=== PATIENT | female | born 1965 | race African-American/Black ===

== ENCOUNTER 2016-05-30 19:19 | Emergency (ER) | payer SELFPAY ==
--- NOTE | 2016-05-30 21:03 | ER Document Report ---
ED Medical Screen (RME) - General Stated Complaint: FLANK PAIN Notes: Patient complains of left sided back pain that started today after lifting a child at work. She works in daycare. Denies dysuria, no fever, no nausea or vomiting. Has had back injury past but felt the same way. I have greeted and performed a rapid initial assessment of this patient. A comprehensive ED assessment and evaluation of the patient, analysis of test results and completion of the medical decision making process will be conducted by additional ED providers. TRAVEL OUTSIDE OF THE [place] IN LAST 30 DAYS: No - Related Data Allergies/Adverse Reactions: acetaminophen [From Vicodin] Allergy (Verified 05/30/16 20:59) hydrocodone bitartrate [From Vicodin] Allergy (Verified 05/30/16 20:59) Past Medical History - Past Medical History Cardiac Medical History: Reports: Hx Hypertension Denies: Hx Coronary Artery Disease Past Surgical History: Reports: Hx Section - Immunizations Hx Diphtheria, Pertussis, Tetanus Vaccination: No Physical Exam - Vital signs Vitals: Temp Pulse Resp BP Pulse Ox 98.9 F 87 17 200/86 H 99 05/30/16 20:09 05/30/16 20:09 05/30/16 20:09 05/30/16 20:09 05/30/16 20:09 - Back Back: Tender - left lumbar muscles, pain reproduced by left leg raise. Course - Vital Signs Vital signs: Temp Pulse Resp BP Pulse Ox 98.9 F 87 17 200/86 H 99 05/30/16 20:09 05/30/16 20:09 05/30/16 20:09 05/30/16 20:09 05/30/16 20:09
[2016-05-30 21:52] LABS: APPEARANCE,URINE SLIGHTLY-CLOUDY; BILIRUBIN,URINE NEGATIVE (NEGATIVE); GLUCOSE, URINE NEGATIVE (NEGATIVE); KETONES,URINE NEGATIVE (NEGATIVE); LEUKOCYTE ESTERASE,URINE NEGATIVE (NEGATIVE); NITRITE,URINE NEGATIVE (NEGATIVE); PROTEIN,URINE NEGATIVE (NEGATIVE); URINE SPECIFIC GRAVITY 1.017; UROBILINOGEN,URINE NEGATIVE mg/dL (<2.0)
[2016-05-30] MEDS ORDERED: OXYCODONE-ACETAMINOPHEN 5-325 MG TABLET PO ONE (22:09)
[2016-05-30] MEDS ORDERED: CYCLOBENZAPRINE HCL 10 MG TABLET PO ONE (22:09)
--- NOTE | 2016-05-30 22:10 | ER Document Report ---
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 Patient states occasionally the pain will radiate to the lateral aspect of her left lower extremity. Patient denies any numbness or tingling. Patient denies any urinary symptoms, nausea, or vomiting. Patient states she doesn't history of hypertension but she usually takes her blood pressure medications at night as her medications make her drowsy. Patient denies any headache, chest pain, shortness of breath. Associated Symptoms: Other - Left back pain Exacerbated by: Movement Relieved by: Remaining still Similar symptoms previously: Yes Recently seen / treated by doctor: No - ROS ROS below otherwise negative: Yes Systems Reviewed and Negative: Yes All other systems reviewed and negative - CONSTITUTIONAL Constitutional: DENIES: Fever, Chills - NEURO Neurology: DENIES: Headache, Weakness - CARDIOVASCULAR Cardiovascular: DENIES: Chest pain - RESPIRATORY Respiratory: DENIES: Trouble Breathing, Coughing - GASTROINTESTINAL Gastrointestinal: DENIES: Abdominal Pain - URINARY Urinary: DENIES: Dysuria - REPRODUCTIVE Reproductive: DENIES: : - MUSCULOSKELETAL Musculoskeletal: REPORTS: Back Pain. DENIES: Neck Pain - DERM Skin Color: Normal, [place] Skin Problems: None Past Medical History - General Information source: Patient - Social History Smoking Status: Never Smoker Chew tobacco use (# tins/day): No Frequency of alcohol use: None Drug Abuse: None Occupation: daycare worker Lives with: Family Family History: Reviewed & Not Pertinent, Malignancy - Past Medical History Cardiac Medical History: Reports: Hx Hypertension Denies: Hx Coronary Artery Disease Renal/ Medical History: Denies: Hx Peritoneal Dialysis Past Surgical History: Reports: Hx Section - Immunizations Hx Diphtheria, Pertussis, Tetanus Vaccination: No Vertical Provider Document - CONSTITUTIONAL Agree With Documented VS: Yes Exam Limitations: No Limitations General Appearance: WD/WN, No Apparent Distress Notes: PHYSICAL EXAMINATION: GENERAL: Well-appearing, well-nourished and in no acute distress. HEAD: Atraumatic, normocephalic. EYES: sclera clear, anicteric, conjunctiva are normal. ENT: nares patent, Moist mucous membranes. NECK: Normal range of motion, supple no lymphadenopathy LUNGS: respirations unlabored HEART: Regular rate and rhythm without murmurs, equal 2+ pulses to bilateral extremities EXTREMITIES: Normal range of motion, no pitting or edema. No cyanosis. Gait normal, pt ambulates without difficulty BACK: Left thoracolumbar paraspinal tenderness, patient with palpable muscle spasm to latissimus dorsi, no deformities or step-offs. No CVA tenderness. NEUROLOGICAL: Cranial nerves grossly intact. Normal speech, normal gait. PSYCH: Normal mood, normal affect. SKIN: Warm, Dry, normal turgor, no rashes or lesions noted. - INFECTION CONTROL TRAVEL OUTSIDE OF THE [place] IN LAST 30 DAYS: No - RESPIRATORY O2 Sat by Pulse Oximetry: 99 Course - Re-evaluation Re-evalutation: 05/30/16 22:07 Discussed with patient importance of compliance with her antihypertensive medication. Patient states she doesn't take her blood pressure medicine in the afternoon as it makes her drowsy. Patient states she takes it before she goes to bed at night. Reviewed patient's medications with her and discussed how it was only one of her medications (clonidine) that were likely making her drowsy and that she should discuss this with her primary doctor but should take her usual medications as prescribed. - Vital Signs Vital signs: Temp Pulse Resp BP Pulse Ox 98.9 F 87 17 200/86 H 99 05/30/16 20:09 05/30/16 20:09 05/30/16 20:09 05/30/16 20:09 05/30/16 20:09 Discharge - Discharge Clinical Impression: HTN (hypertension) Qualifiers: Hypertension type: essential hypertension Qualified Code(s): I10 - Essential ( primary) hypertension Low back strain Qualifiers: Encounter type: initial encounter Qualified Code(s): S39.012A - Strain of muscle, fascia and tendon of lower back, initial encounter Condition: Stable Disposition: HOME, SELF-CARE Instructions: Low Back Pain ([facility]), Muscle Strain ([facility]), Oral Narcotic Medication ([facility]), Warm Packs ([facility]), High Blood Pressure, Requiring Treatment ( [facility]) Additional Instructions: Return immediately for any new or worsening symptoms Followup with your primary care provider, call tomorrow to make a followup appointment Take your blood pressure medication as prescribed when you get home Prescriptions: Cyclobenzaprine HCl [Flexeril 10 Mg Tablet] 10 mg PO TID #15 tablet Oxycodone HCl/Acetaminophen [Percocet 5-325 mg Tablet] 1 tab PO ASDIR PRN #15 tablet PRN Reason: Forms: Return to Work Referrals: [facility] [Provider Group] - 06/02/16
[2016-05-30 23:53] VITALS: BP 186/91
== END 2016-05-30 22:25 | disposition home or self-care (01) ==
LOC: ER 19:19
DX: S39.012A Strain of muscle, fascia and tendon of lower back, initial encounter (principal); X58.XXXA Exposure to other specified factors, initial encounter; M62.830 Muscle spasm of back; I10 Essential (primary) hypertension
CPT/HCPCS: 81001; 99283

== ENCOUNTER 2016-09-02 19:23 | Emergency (ER) | payer SELFPAY ==
[2016-09-03] MEDS ORDERED: IBUPROFEN 600 MG TABLET PO ONE (00:16)
[2016-09-03] MEDS ORDERED: CLONIDINE HCL 0.2 MG TABLET PO ONE (00:17)
[2016-09-03] MEDS ORDERED: HYDROCHLOROTHIAZIDE 25 MG TABLET PO ONE (00:17)
--- NOTE | 2016-09-03 00:21 | ER Document Report ---
ED General - General Chief Complaint: High Blood Pressure Stated Complaint: LEFT LEG PAIN, KNEE PAIN, RASH Time Seen by Provider: 09/02/16 23:19 Notes: Patient is a 51-year-old female with past medical history of hypertension, noncompliant with medications who presents today with multiple complaints. She states her main concern is that she has had intermittent left thigh cramping and pain. Describes it as a mild, cramping, aching pain. No injury to the area. This is been ongoing for the past 2 weeks. He does note that she has a history of an unprovoked DVT in the past. States this pain however does not feel like when she had that in the past. She also complains of a diffuse, intermittent rash that is pruritic. Multiple contacts with similar rashes and she believes they are related to possible insect bites. She has not seen a primary care doctor regarding the above complaints. TRAVEL OUTSIDE OF THE [place] IN LAST 30 DAYS: No - Related Data Allergies/Adverse Reactions: acetaminophen [From Vicodin] Allergy (Verified 05/30/16 20:59) hydrocodone bitartrate [From Vicodin] Allergy (Verified 05/30/16 20:59) Past Medical History - General Information source: Patient - Social History Smoking Status: Never Smoker Frequency of alcohol use: None Drug Abuse: None Lives with: Family Family History: Reviewed & Not Pertinent, Malignancy - Past Medical History Cardiac Medical History: Reports: Hx Hypertension Denies: Hx Coronary Artery Disease Renal/ Medical History: Denies: Hx Peritoneal Dialysis Past Surgical History: Reports: Hx Section - Immunizations Hx Diphtheria, Pertussis, Tetanus Vaccination: No Review of Systems - Review of Systems Notes: Constitutional: Negative for fever. HENT: Negative for sore throat. Eyes: Negative for visual changes. Cardiovascular: Negative for chest pain. Respiratory: Negative for shortness of breath. Gastrointestinal: Negative for abdominal pain, vomiting or diarrhea. Genitourinary: Negative for dysuria. Musculoskeletal: Positive for left leg pain Skin: Positive for rash. Neurological: Negative for headaches, weakness or numbness. 10 point ROS negative except as marked above and in HPI. Physical Exam - Vital signs Vitals: Temp Pulse Resp BP Pulse Ox 98.2 F 91 18 220/120 H 100 09/02/16 20:22 09/02/16 20:22 09/02/16 20:22 09/02/16 20:22 09/02/16 20:22 Interpretation: Hypertensive Notes: PHYSICAL EXAMINATION: GENERAL: Well-appearing, well-nourished and in no acute distress. HEAD: Atraumatic, normocephalic. EYES: Pupils equal round and reactive to light, extraocular movements intact, sclera anicteric, conjunctiva are normal. ENT: nares patent, oropharynx clear without exudates. Moist mucous membranes. NECK: Normal range of motion, supple without lymphadenopathy LUNGS: Breath sounds clear to auscultation bilaterally and equal. No wheezes rales or rhonchi. HEART: Regular rate and rhythm without murmurs ABDOMEN: Soft, nontender, normoactive bowel sounds. No guarding, no rebound. No masses appreciated. EXTREMITIES: Normal range of motion, no pitting or edema. No cyanosis. NEUROLOGICAL: No focal neurological deficits. Moves all extremities spontaneously and on command. PSYCH: Normal mood, normal affect. SKIN: Warm, Dry, normal turgor, excoriated papular lesions over the bilateral upper extremities and bilateral lower extremities Course - Re-evaluation Re-evalutation: 09/03/16 00:17 Patient presents with 3 distinct complaints 1. Patient has uncontrolled essential hypertension is out of her blood pressure medications. Patient denies any symptoms concerning for SAH, dissection, NC, or encephalopaty. Alert, oriented, and denies any symptoms at time of assessment. Normal neuro exam. Per [facility] policy guidelines, will therefore not obtain any labs or EKG at this time. Will refill patient's home clonidine and hydrochlorothiazide. I have discussed critical importance of follow up with PCP within 1 week and increased risk of devastating stroke, heart attack, respiratory distress, and other life threatening complications if blood pressure is not reduced appropriately. Diet and exercise habits also discussed. Patient will be discharged with return precautions and follow-up recommendations. 2. Rash: Patient has multiple areas of excoriation appear to be related to bug bites. No evidence of scabies, hives, or infection. She will be started on topical triamcinolone cream. 3. Left thigh discomfort: Patient does have a history of a DVT in the past although has no peripheral edema, appreciable swelling and notes that the pain is only present when she is moving the leg. I have encouraged her return in the morning for an ultrasound although she states she would rather try ibuprofen over the course of the next 1 week and see if this resolves her symptoms. At this time will discharge with return precautions and follow-up recommendations. Verbal discharge instructions given a the bedside and opportunity for questions given. Medication warnings reviewed. Patient is in agreement with this plan and has verbalized understanding of return precautions and the need for primary care follow-up in the next 24-72 hours. - Vital Signs Vital signs: Temp Pulse Resp BP Pulse Ox 97.9 F 91 21 H 187/94 H 100 09/03/16 00:02 09/02/16 20:22 09/03/16 00:02 09/03/16 00:02 09/03/16 00:02 Discharge - Discharge Clinical Impression: Essential hypertension, Left leg pain, Pruritic rash Condition: Good Disposition: HOME, SELF-CARE Additional Instructions: You were seen today for blood pressure that was high. This is a long-term risk factor for multiple medical problems including heart attack and stroke. However, the blood pressure in of itself will not cause you to have an acute stroke or heart attack over the course of just several days or weeks. You need to have a gradual reduction of your blood pressure back to normal levels over the next several months in conjunction with your primary care physician. Return if you develop headache, weakness, numbness, chest pain, pass out, or have any other symptoms that are concerning to you. Apply the steroid cream that she was sent home with up to 3 times daily to the affected area to help with itching. Take ibuprofen 600 mg every 6 hours as needed for pain of your left thigh. After discussed I recommended to get an ultrasound of this like to be certain that it is not a clot causing the pain. Prescriptions: Clonidine HCl 0.2 mg PO BID #60 tablet Hydrochlorothiazide 25 mg PO DAILY #30 tablet Triamcinolone Acetonide 80 gm TP TID #80 cream.gm. Forms: Elevated Blood Pressure
[2016-09-03] MEDS ORDERED: TRIAMCINOLONE ACETONIDE 0.025% CREAM 15 GM TP SCH (00:30)
[2016-09-03] MEDS ORDERED: TRIAMCINOLONE ACETONIDE 0.025% CREAM 15 GM TP ONE (00:30)
[2016-09-03 00:39] VITALS: BP 187/94
[2016-09-03] MEDS ORDERED: HYDROXYZINE PAMOATE 25 MG CAPSULE PO ONE (00:54)
== END 2016-09-03 00:30 | disposition home or self-care (01) ==
LOC: ER 19:23
DX: I10 Essential (primary) hypertension (principal); T50.2X6A Underdosing of carbonic-anhydrase inhibitors, benzothiadiazides and other diuretics, initial encounter; T46.5X6A Underdosing of other antihypertensive drugs, initial encounter; Z91.14 Patient's other noncompliance with medication regimen; R25.2 Cramp and spasm; M79.652 Pain in left thigh; Z86.718 Personal history of other venous thrombosis and embolism; R21 Rash and other nonspecific skin eruption; L29.8 Other pruritus; Z88.5 Allergy status to narcotic agent; Z88.6 Allergy status to analgesic agent
CPT/HCPCS: 99283; J3490

== ENCOUNTER 2016-09-04 09:05 | Emergency (ER) | payer SELFPAY ==
[2016-09-04] MEDS ORDERED: CLONIDINE HCL 0.2 MG TABLET PO ONE (09:25)
[2016-09-04] MEDS ORDERED: HYDROCHLOROTHIAZIDE 25 MG TABLET PO ONE (09:25)
[2016-09-04] MEDS ORDERED: OXYCODONE-ACETAMINOPHEN 5-325 MG TABLET PO ONE (09:25)
--- NOTE | 2016-09-04 09:28 | ER Document Report ---
ED Extremity Problem, Lower - General Chief Complaint: Leg Pain Stated Complaint: LEFT LEG PAIN Time Seen by Provider: 09/04/16 09:16 Mode of Arrival: Ambulatory Information source: Patient Notes: Patient presents complaining of left lateral leg pain from mid thigh to the upper calf area. Patient states pain worsens when she lays supine or stands. Patient denies any injury. Patient denies any paresthesia or weakness. Patient states she does have a previous history of superficial DVT in her right leg. Patient denies any recent travel, bedrest or immobilization. Patient states she has had these symptoms for the past 16 days. TRAVEL OUTSIDE OF THE [place] IN LAST 30 DAYS: No - HPI Patient complains to provider of: Pain. No: Swelling Occurred: Other - 16 days Onset/Duration: Persistent Quality of pain: Sharp Pain Level: 5 Context: denies: Recent immobilization, Recent surgery, Recent travel Recent injury: No Associated symptoms: Painful ambulation Exacerbated by: Movement - Related Data Allergies/Adverse Reactions: acetaminophen [From Vicodin] Allergy (Verified 09/04/16 09:10) hydrocodone bitartrate [From Vicodin] Allergy (Verified 09/04/16 09:10) Past Medical History - General Information source: Patient - Social History Smoking Status: Never Smoker Frequency of alcohol use: None Drug Abuse: None Occupation: day care Family History: Reviewed & Not Pertinent, Malignancy Patient has suicidal ideation: No Patient has homicidal ideation: No - Past Medical History Cardiac Medical History: Reports: Hx Hypertension Denies: Hx Coronary Artery Disease Renal/ Medical History: Denies: Hx Peritoneal Dialysis Past Surgical History: Reports: Hx Section - Immunizations Hx Diphtheria, Pertussis, Tetanus Vaccination: No Review of Systems - Review of Systems Constitutional: No symptoms reported. denies: Fever, Weakness EENT: No symptoms reported Cardiovascular: No symptoms reported Respiratory: No symptoms reported Gastrointestinal: No symptoms reported. denies: Vomiting Genitourinary: No symptoms reported. denies: Dysuria Female Genitourinary: No symptoms reported Musculoskeletal: Muscle pain - LLE. denies: Back pain Skin: No symptoms reported. denies: Rash Hematologic/Lymphatic: No symptoms reported Neurological/Psychological: No symptoms reported Physical Exam - Vital signs Vitals: Temp Pulse Resp BP Pulse Ox 98.5 F 72 20 180/81 H 99 09/04/16 09:09 09/04/16 09:09 09/04/16 09:09 09/04/16 09:09 09/04/16 09:09 - General General appearance: Appears well, Alert In distress: None - HEENT Head: Normocephalic, Atraumatic Conjunctiva: Normal Mouth/Lips: Normal Mucous membranes: Normal Pharynx: Normal Neck: Normal - Respiratory Respiratory status: No respiratory distress Chest status: Nontender Breath sounds: Normal. No: Rales, Rhonchi, Stridor, Wheezing Chest palpation: Normal - Cardiovascular Rhythm: Regular Heart sounds: S1 appreciated, S2 appreciated Murmur: No Pulses: Normal: Posterior tibial, Dorsalis pedis - Back Back: Normal, Nontender. No: CVA tenderness, Vertebra tenderness - Extremities General upper extremity: Normal inspection, Normal ROM General lower extremity: Normal inspection, Tender - Lateral thigh tenderness from middle to distal third of the left thigh being down the proximal third of left lateral upper calf normal skin color and temperature, no edema. This increases with weightbearing or lying supine, Normal color, Normal ROM, Normal temperature. No: Edema - Neurological Neuro grossly intact: Yes Cognition: Normal Shaila Coma Scale Eye Opening: Spontaneous Hilbert Coma Scale Verbal: Oriented Shaila Coma Scale Motor: Obeys Commands Hilbert Coma Scale Total: 15 - Psychological Associated symptoms: Normal affect, Normal mood - Skin Skin Temperature: Warm Skin Moisture: Dry Skin Color: Normal Course - Re-evaluation Re-evalutation: 09/04/16 12:00 pt reported history of fibroid uterus and heavy menstrual bleeding. Patient states she has been told she is anemic in the past but is not currently on any iron supplementation. Consulted with Dr. Gann regarding patient presentation , recommend any additional testing at this time. Does recommend outpatient follow-up with LO[facility] REPRESENTATIVE and iron supplementation. 09/04/16 13:11 dr resendiz states that he will return a call in 5 minutes regarding pt's doppler report 09/04/16 14:00 Dr. Resendiz called report of Doppler test negative for DVT Suspect that patient is having radicular pain in a L5-S1 distribution pattern, discussed worsening signs or symptoms that patient should return immediately for. Patient verbalized understanding and agrees with plan of care. States that periodically she will have low back and left hip pain although does not have any back pain at this time. Encouraged to follow-up with a continuous improvement director for further evaluation of heavy menstrual bleeding as well as her anemia. Patient advised that she needs to take iron supplements to help with her anemia. Patient additionally advised that her potassium level was mildly decreased and that she needs to increase foods rich in potassium in her diet. - Vital Signs Vital signs: Temp Pulse Resp BP Pulse Ox 98.0 F 66 16 145/74 H 96 09/04/16 14:05 09/04/16 14:05 09/04/16 14:05 09/04/16 14:05 09/04/16 14:05 - Laboratory Result Diagrams: 09/04/16 10:39 09/04/16 10:39 Laboratory results interpreted by me: 09/04/16 09/04/16 10:39 10:39 Hgb 8.2 L Hct 29.1 L MCV 58 L MCH 16.5 L MCHC 28.2 L RDW 18.4 H Potassium 3.4 L Labs- Entire Visit 09/04/16 09/04/16 10:39 10:39 WBC 4.5 RBC 4.98 Hgb 8.2 L Hct 29.1 L MCV 58 L MCH 16.5 L MCHC 28.2 L RDW 18.4 H Plt Count 178 Seg Neutrophils % 54.8 Lymphocytes % 35.2 Monocytes % 7.8 Eosinophils % 1.8 Basophils % 0.4 Absolute Neutrophils 2.5 Absolute Lymphocytes 1.6 Absolute Monocytes 0.4 Absolute Eosinophils 0.1 Absolute Basophils 0.0 Platelet Comment ADEQUATE Polychromasia SLIGHT Hypochromasia 1+ Anisocytosis 1+ Microcytosis 4+ Ovalocytes 1+ Sodium 141.8 Potassium 3.4 L Chloride 103 Carbon Dioxide 28 Anion Gap 11 BUN 12 Creatinine 0.70 Est GFR ( Amer) > 60 Est GFR (Non-Af Amer) > 60 Glucose 108 Calcium 9.6 Creatine Kinase 84 09/04/16 20:45 - Diagnostic Test Radiology reviewed: Reports reviewed Discharge - Discharge Clinical Impression: Essential hypertension, Left leg pain, Hypokalemia Anemia Qualifiers: Anemia type: unspecified type Qualified Code(s): D64.9 - Anemia, unspecified Condition: Stable Disposition: HOME, SELF-CARE Instructions: Anemia, Iron Deficiency ([facility]), Hypokalemia ([facility]), High Blood Pressure, Requiring Treatment ([facility]), Sciatica ([facility]) Additional Instructions: Return immediately for any new or worsening symptoms Followup with your primary care provider, call tomorrow to make a followup appointment Follow-up with a primary doctor to have your blood pressure reevaluated as well as her potassium level. Increase foods rich in potassium in your diet. Follow-up with a continuous improvement director for further evaluation of heavy menstrual bleeding. Your blood work shows that you are anemic, you will need to increase your iron intake. Take your blood pressure medication at home as prescribed Prescriptions: Ferrous Sulfate [Albafort] 325 mg PO BID #60 tablet Oxycodone HCl/Acetaminophen [Percocet 5-325 mg Tablet] 1 tab PO ASDIR PRN #15 tablet PRN Reason: Forms: Elevated Blood Pressure Referrals: [facility] [Provider Group] - Follow up tomorrow [facility] [Provider Group] - Follow up in 3-5 days
[2016-09-04 10:56] LABS: ABSOLUTE EOSINOPHILS # (AUTO) 0.1 10^3/uL (0.0-0.6); ABSOLUTE LYMPHOCYTES (AUTO) 1.6 10^3/uL (0.5-4.7); ABSOLUTE MONOCYTES (AUTO) 0.4 10^3/uL (0.1-1.4); ABSOLUTE NEUT (AUTO) 2.5 10^3/uL (1.7-8.2); BASOPHILS % (AUTO) 0.4 % (0-2); EOSINOPHILS % (AUTO) 1.8 % (0-6); HEMATOCRIT 29.1 % (36.0-47.0); HEMOGLOBIN 8.2 g/dL (12.0-15.5); LYMPHOCYTES % (AUTO) 35.2 % (13-45); MEAN CORPUSCULAR HEMOGLOBIN 16.5 pg (27.0-33.4); MEAN CORPUSCULAR HGB CONC 28.2 g/dL (32.0-36.0); MONOCYTES % (AUTO) 7.8 % (3-13); RED BLOOD COUNT 4.98 10^6/uL (3.72-5.28); RED CELL DISTRIBUTION WIDTH 18.4 % (11.5-14.0); SEGMENTED NEUTROPHILS % (AUTO) 54.8 % (42-78); WHITE BLOOD COUNT 4.5 10^3/uL (4.0-10.5)
[2016-09-04 11:11] LABS: ANION GAP 11 (5-19); BLOOD UREA NITROGEN 12 mg/dL (7-20); CALCIUM 9.6 mg/dL (8.4-10.2); CARBON DIOXIDE 28 mmol/L (22-30); CHLORIDE 103 mmol/L (98-107); CREATINE KINASE 84 U/L (30-135); GLUCOSE 108 mg/dL (75-110); POTASSIUM 3.4 mmol/L (3.6-5.0); SODIUM 141.8 mmol/L (137-145)
[2016-09-04 11:13] LABS: HGB HCT DIFFERENCE -4.5; MEAN CORPUSCULAR VOLUME 58 fl (80-97)
[2016-09-04 11:34] LABS: ANISOCYTOSIS 1+; HYPOCHROMASIA 1+; MICROCYTOSIS 4+; OVALOCYTES 1+; POLYCHROMASIA SLIGHT
[2016-09-04] MEDS ORDERED: POTASSIUM CHLORIDE 10 MEQ TABLET.SA PO ONE (13:48)
[2016-09-04 14:06] VITALS: BP 145/74
--- NOTE | 2016-09-04 17:36 | XCELERA REPORT ---
[address] [address] Lower Extremity Venous Evaluation Name: DARIUS ROMAN Age: 51 yrs Gender: Female : 1965 Patient Status: Preadmit Patient Location: ER Study Date: 09/04/2016 10:21 AM Procedure: Color flow and duplex imaging of the veins of the left lower extremity as well as the right Common Femoral vein. Reason For Study: L thigh pain radiates to calf Ordering Physician: CYRUS GRANADOS Performed By: Malinda Edward Right Sided Venous Evaluation The right common femoral vein is fully compressible. Spontaneous and phasic flow is present in the right common femoral vein. Left Sided Venous Evaluation Normal vessel filling wall to wall, compression and augmentation as well as Colour flow down to the infrageniculate veins. Critical Findings Called in to the ER. Interpretation Summary No duplex evidence of DVT or obstruction in the left lower extremity nor in the right Common Femoral vein. : CYRUS GRANADOS > Sabino Turk
[2016-09-05 15:31] LABS: PATH REVIEW PATHOLOGIST REVIEWED
== END 2016-09-04 14:21 | disposition home or self-care (01) ==
LOC: ER 09:05
DX: M79.652 Pain in left thigh (principal); M79.662 Pain in left lower leg; I10 Essential (primary) hypertension; D64.9 Anemia, unspecified; E87.6 Hypokalemia; Z86.718 Personal history of other venous thrombosis and embolism; Z88.6 Allergy status to analgesic agent; Z88.5 Allergy status to narcotic agent
CPT/HCPCS: 36415; 80048; 82550; 85025; 93971; 99284

== ENCOUNTER 2016-11-17 20:10 | Emergency (ER) | payer SELFPAY ==
[2016-11-17] MEDS ORDERED: PREDNISONE 20 MG TABLET PO ONE (20:38)
[2016-11-17] MEDS ORDERED: FAMOTIDINE 20 MG TABLET PO ONE (20:39)
--- NOTE | 2016-11-17 20:43 | ER Document Report ---
HPI - HPI Patient complains to provider of: skin rash Pain Level: 4 Context: Patient is a 51-year-old female who comes emergency department for chief complaint of itchy rash mainly on her back, shoulders, and arms. Symptoms started yesterday. She has had hives like this before but she is unsure why. She denies any facial or throat swelling, denies difficulty swallowing or breathing. Only past medical history is hypertension, takes clonidine and hydrochlorothiazide, only has a couple of pills left. She does not currently see primary care. - CARDIOVASCULAR Cardiovascular: DENIES: Chest pain - REPRODUCTIVE LMP: 11-11-16 Reproductive: DENIES: : - DERM Skin Color: Normal Past Medical History - General Information source: Patient - Social History Smoking Status: Never Smoker Chew tobacco use (# tins/day): No Frequency of alcohol use: None Drug Abuse: None Lives with: Family Family History: Reviewed & Not Pertinent, Malignancy Patient has suicidal ideation: No Patient has homicidal ideation: No - Past Medical History Cardiac Medical History: Reports: Hx Hypertension Denies: Hx Coronary Artery Disease Renal/ Medical History: Denies: Hx Peritoneal Dialysis Past Surgical History: Reports: Hx Section - Immunizations Hx Diphtheria, Pertussis, Tetanus Vaccination: No Vertical Provider Document - CONSTITUTIONAL General Appearance: WD/WN. negative: No Apparent Distress - patient scratching her arms and back, mildly anxious, no significant distress - INFECTION CONTROL TRAVEL OUTSIDE OF THE [place] IN LAST 30 DAYS: No - HEENT HEENT: Atraumatic, Normal ENT Exam - normal oral and pharyngeal exam, no uvular edema or swelling of the posterior phayrnx, Normocephalic - NECK Neck: Normal Inspection - RESPIRATORY Respiratory: Breath Sounds Normal, No Respiratory Distress. negative: Wheezing O2 Sat by Pulse Oximetry: 98 - CARDIOVASCULAR Cardiovascular: Regular Rate, Regular Rhythm - GI/ABDOMEN Gastrointestinal: Abdomen Soft, Abdomen Non-Tender - BACK Back: Normal Inspection - MUSCULOSKELETAL/EXTREMETIES Musculoskeletal/Extremeties: MAEW, FROM, Non-Tender - NEURO Level of Consciousness: Awake, Alert, Appropriate Motor/Sensory: No Motor Deficit, No Sensory Deficit - DERM Integumentary: Warm, Dry, Rash - Mild excoriations and urticarial rash noted over the arms, upper back, lower back. no pustules, papules, vesicles, bulla, induration, or fluctuance noted. Course - Re-evaluation Re-evalutation: Patient with a urticarial rash over the back, lower back, and arms. Normal ENT and lung exam. No evidence of anaphylaxis. Patient is very hypertensive, however she has missed recent doses of blood pressure medication, she is almost out. She states her current scripts are clonidine and hydrochlorothiazide. She will be given temporary refills and referred to primary care. Stressed the importance of her following up with primary care for her to have this managed. Also discussed return precautions in detail, patient states understanding and agreement. - Vital Signs Vital signs: Temp Pulse Resp BP Pulse Ox 98.1 F 99 20 98 11/17/16 20:12 11/17/16 20:12 11/17/16 20:12 11/17/16 20:12 Discharge - Discharge Clinical Impression: Rash, Urticaria, Elevated blood pressure reading Condition: Stable Disposition: HOME, SELF-CARE Additional Instructions: Your examination is consistent with hives, the exact cause is uncertain. Take prednisone as prescribed, take the Zyrtec and Pepcid for 1 week. Take 50 mg of benadryl when you get home. You can take the benadryl instead of the Zyrtec, but benadryl is sedating. Please follow-up in 1 week with primary care for additional management of your blood pressure. Return immediately if you develop any concerning or worsening symptoms including swelling of the face, swelling of the throat, difficulty swallowing or breathing, or any other concerning symptoms. Prescriptions: Cetirizine HCl [Zyrtec 10 mg Tablet] 1 tab PO DAILY #30 tablet Clonidine HCl 0.2 mg PO BID #60 tablet Famotidine [Pepcid 20 mg Tablet] 20 mg PO BID #14 tablet Hydrochlorothiazide 25 mg PO DAILY #30 tablet Prednisone [Deltasone 10 mg Tablet] 10 mg PO ASDIR PRN #21 tablet PRN Reason: Forms: Return to Work Referrals: VALORIE LARRY MD [ACTIVE STAFF] - Follow up in 1 week [facility] [Provider Group] - Follow up in 1 week
== END 2016-11-17 20:50 | disposition home or self-care (01) ==
LOC: ER 20:10
DX: L50.9 Urticaria, unspecified (principal); I10 Essential (primary) hypertension; T46.5X6A Underdosing of other antihypertensive drugs, initial encounter; T50.2X6A Underdosing of carbonic-anhydrase inhibitors, benzothiadiazides and other diuretics, initial encounter; Z91.14 Patient's other noncompliance with medication regimen; Z79.899 Other long term (current) drug therapy
CPT/HCPCS: 99283; J7512

== ENCOUNTER 2017-02-10 13:38 | Emergency (ER) | payer SELFPAY ==
[2017-02-10] MEDS ORDERED: CLONIDINE HCL 0.2 MG TABLET PO ONE (14:04)
--- NOTE | 2017-02-10 14:05 | ER Document Report ---
ED Medical Screen (RME) - General Chief Complaint: Cough Stated Complaint: WHEEZING,BODY PAIN,HEADACHE Time Seen by Provider: 02/10/17 14:02 Notes: Patient has 2 days of chest pain and shortness of breath. Patient states she has been out of her clonidine for 2 days because she has not had the money to get it filled. She denies any history of previous coronary artery disease. TRAVEL OUTSIDE OF THE [place] IN LAST 30 DAYS: No - Related Data Allergies/Adverse Reactions: acetaminophen [From Vicodin] Allergy (Verified 02/10/17 13:43) hydrocodone bitartrate [From Vicodin] Allergy (Verified 02/10/17 13:43) Past Medical History - Social History Chew tobacco use (# tins/day): No Frequency of alcohol use: None Drug Abuse: None - Past Medical History Cardiac Medical History: Reports: Hx Hypertension Denies: Hx Coronary Artery Disease Renal/ Medical History: Denies: Hx Peritoneal Dialysis Past Surgical History: Reports: Hx Section - Immunizations Hx Diphtheria, Pertussis, Tetanus Vaccination: No Physical Exam - Vital signs Vitals: Temp Pulse Resp BP Pulse Ox 97.9 F 96 18 211/123 H 98 02/10/17 13:40 02/10/17 13:40 02/10/17 13:40 02/10/17 13:40 02/10/17 13:40 Course - Vital Signs Vital signs: Temp Pulse Resp BP Pulse Ox 97.9 F 96 18 211/123 H 98 02/10/17 13:40 02/10/17 13:40 02/10/17 13:40 02/10/17 13:40 02/10/17 13:40
[2017-02-10 14:45] LABS: ABSOLUTE EOSINOPHILS # (AUTO) 0.1 10^3/uL (0.0-0.6); ABSOLUTE MONOCYTES (AUTO) 0.4 10^3/uL (0.1-1.4); ABSOLUTE NEUT (AUTO) 3.4 10^3/uL (1.7-8.2); BASOPHILS % (AUTO) 0.5 % (0-2); EOSINOPHILS % (AUTO) 2.5 % (0-6); HEMATOCRIT 34.4 % (36.0-47.0); HEMOGLOBIN 10.5 g/dL (12.0-15.5); HGB HCT DIFFERENCE -2.9; LYMPHOCYTES % (AUTO) 33.5 % (13-45); MEAN CORPUSCULAR HEMOGLOBIN 20.1 pg (27.0-33.4); MEAN CORPUSCULAR HGB CONC 30.6 g/dL (32.0-36.0); MEAN CORPUSCULAR VOLUME 66 fl (80-97); MONOCYTES % (AUTO) 6.6 % (3-13); RED BLOOD COUNT 5.25 10^6/uL (3.72-5.28); RED CELL DISTRIBUTION WIDTH 17.7 % (11.5-14.0); SEGMENTED NEUTROPHILS % (AUTO) 56.9 % (42-78); WHITE BLOOD COUNT 5.9 10^3/uL (4.0-10.5)
[2017-02-10 14:55] LABS: APPEARANCE,URINE SLIGHTLY-CLOUDY; BILIRUBIN,URINE NEGATIVE (NEGATIVE); GLUCOSE, URINE NEGATIVE (NEGATIVE); KETONES,URINE NEGATIVE (NEGATIVE); LEUKOCYTE ESTERASE,URINE NEGATIVE (NEGATIVE); NITRITE,URINE NEGATIVE (NEGATIVE); PROTEIN,URINE 100 mg/dL (NEGATIVE); URINE SPECIFIC GRAVITY 1.019
--- NOTE | 2017-02-10 15:11 | ER Document Report ---
ED General - General Mode of Arrival: Ambulatory Information source: Patient TRAVEL OUTSIDE OF THE [place] IN LAST 30 DAYS: No - HPI Patient complains to provider of: Cough and muscle ache Onset: Other - 3 days ago Associated symptoms: Other - see notes above <CHEVY LARRY - Last Filed: 02/10/17 15:11> <NIRMALA PRICE - Last Filed: 02/10/17 17:02> - General Chief Complaint: Cough Stated Complaint: WHEEZING,BODY PAIN,HEADACHE Time Seen by Provider: 02/10/17 14:02 Notes: 51 year old female with history of hypertension presents to the ED complaining of cough, wheezing, and muscle ache that started 3 days ago and has been continuous since. Patient reports that she has not had a flu shot this year. Patient also states that she has been out of Clonidine for 2-3 days now. Patient denies history of smoking or alcohol use. (CHEVY LARRY) - Related Data Allergies/Adverse Reactions: acetaminophen [From Vicodin] Allergy (Verified 02/10/17 13:43) hydrocodone bitartrate [From Vicodin] Allergy (Verified 02/10/17 13:43) Past Medical History - General Information source: Patient - Social History Smoking Status: Never Smoker Chew tobacco use (# tins/day): No Frequency of alcohol use: None Drug Abuse: None Family History: Reviewed & Not Pertinent, Malignancy Patient has suicidal ideation: No Patient has homicidal ideation: No - Past Medical History Cardiac Medical History: Reports: Hx Hypertension Denies: Hx Coronary Artery Disease Renal/ Medical History: Denies: Hx Peritoneal Dialysis Past Surgical History: Reports: Hx Section - Immunizations Hx Diphtheria, Pertussis, Tetanus Vaccination: No <CHEVY LARRY - Last Filed: 02/10/17 15:11> Review of Systems - Review of Systems Constitutional: See HPI, Malaise EENT: No symptoms reported Cardiovascular: No symptoms reported Respiratory: See HPI, Cough, Wheezing Gastrointestinal: No symptoms reported Genitourinary: No symptoms reported Female Genitourinary: No symptoms reported Musculoskeletal: No symptoms reported Skin: No symptoms reported Hematologic/Lymphatic: No symptoms reported Neurological/Psychological: No symptoms reported -: Yes All other systems reviewed and negative <CHEVY LARRY - Last Filed: 02/10/17 15:11> Physical Exam - General General appearance: Alert In distress: None - HEENT Head: Normocephalic, Atraumatic Eyes: Normal Extraocular movements intact: Yes Pupils: PERRL Mouth/Lips: Normal Mucous membranes: Normal Pharynx: Normal - Respiratory Respiratory status: No respiratory distress Breath sounds: Nonproductive cough - hoarse dry cough. No: Normal, Wheezing - Cardiovascular Rhythm: Regular Heart sounds: Normal auscultation - Abdominal Inspection: Normal - Back Back: Normal - Extremities General upper extremity: Normal inspection, Normal ROM General lower extremity: Normal inspection, Normal ROM - Neurological Neuro grossly intact: Yes - Psychological Associated symptoms: Normal affect, Normal mood - Skin Skin Temperature: Warm Skin Moisture: Dry Skin Color: Normal <CHEVY LARRY - Last Filed: 02/10/17 15:11> - Vital signs Vitals: Temp Pulse Resp BP Pulse Ox 97.9 F 96 18 211/123 H 98 02/10/17 13:40 02/10/17 13:40 02/10/17 13:40 02/10/17 13:40 02/10/17 13:40 Course - Laboratory Result Diagrams: 02/10/17 14:30 02/10/17 14:30 <CHEVY LARRY - Last Filed: 02/10/17 15:11> - Laboratory Result Diagrams: 02/10/17 14:30 02/10/17 14:30 - Diagnostic Test Radiology reviewed: Image reviewed, Reports reviewed - Chest x-ray is unremarkable <NIRMALA PRICE - Last Filed: 02/10/17 17:02> - Vital Signs Vital signs: Temp Pulse Resp BP Pulse Ox 97.9 F 96 18 159/73 H 98 02/10/17 13:40 02/10/17 13:40 02/10/17 13:40 02/10/17 16:56 02/10/17 13:40 - Laboratory Laboratory results interpreted by ca: 02/10/17 02/10/17 02/10/17 14:30 14:30 14:40 Hgb 10.5 L Hct 34.4 L MCV 66 L MCH 20.1 L MCHC 30.6 L RDW 17.7 H Potassium 2.9 L* Glucose 114 H Urine Protein 100 H Urine Blood SMALL H Urine Urobilinogen 4.0 H Discharge <CHEVY LARRY - Last Filed: 02/10/17 15:11> <NIRMALA PRICE - Last Filed: 02/10/17 17:02> - Discharge Clinical Impression: Viral upper respiratory tract infection with cough, Hypokalemia, Has run out of medications High blood pressure Qualifiers: Hypertension type: essential hypertension Qualified Code(s): I10 - Essential ( primary) hypertension Condition: Stable Disposition: HOME, SELF-CARE Additional Instructions: Upper Respiratory Illness You have a viral infection of the respiratory passages -- a "cold." This common infection causes nasal congestion, drainage, and often sore throat and cough. It is caused by a virus and is highly contagious. The disease usually lasts a week or more, though the worst symptoms are usually over in 3 or 4 days. There is no "cure" for the viral infection -- it must run its course. If there is a complication, such as bacterial infection in the nose, sinuses, middle ear, or bronchial tubes, antibiotics may be required, but antibiotics won 't affect the virus. If you smoke, you should STOP!! Drink plenty of fluids. A humidifier may help. An expectorant medication or decongestant may make you more comfortable. Use acetaminophen or ibuprofen for fever or aches. See the doctor if fever persists over two or three days, if there is any significant worsening of your symptoms, or if you simply fail to improve as expected. High Blood Pressure: When your blood pressure was taken today it was elevated. Today's reading was_211/123___. Some simple things you can do to help are: If you have blood pressure medicine but aren't using it regularly, start taking it again. Get some aerobic exercise for at least 20 minutes on a daily basis. (See your doctor before beginning a new exercise program.) Eat a low-fat diet. Lose excess weight. Avoid salty foods and avoid adding salt to any of the foods you eat. Avoid diet pills, decongestants, "energizing" herbs, and other medicines that elevate blood pressure. If left untreated, hypertension greatly enhances your risk for developing heart disease and strokes. Please don't ignore this problem. Hypokalemia: You have an abnormally decreased level of serum potassium. Hypokalemia may cause weakness, fatigue, or heart rhythm abnormalities. Sometimes there are no symptoms at all. Usually, low serum potassium is due to taking diuretics ( water pills). It can also be due to excessive vomiting or diarrhea. If no obvious cause is evident, further evaluation will be necessary. Treatment is usually oral potassium supplements. Take these exactly as prescribed. You may also want to select foods which are naturally high in potassium -- fruits (such as bananas, cantaloupe, grapes, oranges, prunes, tomatoes), fresh vegetables (potatoes, spinach, beans, peas), orange or tomato juice, tomato pasta sauce, milk, fish (halibut, tuna, salmon, hemant) A follow-up blood test is usually performed to assure that the potassium is returning to normal. Call the physician if you suffer severe weakness, muscle twitching or cramping, palpitations (pounding or irregular heartbeat), or any other new or alarming symptoms. //////////////////////////////////////////////////////////////////////////////// ///////////////////////////////////////////////////////// Take the clonidine as prescribed, start this evening. Increase potassium in your diet. Try Robitussin-DM to help suppress your cough. Get plenty of rest. Follow-up with a local medical doctor to manage your high blood pressure. Try not to let your blood pressure medication run out again. RETURN TO THE EMERGENCY ROOM IF ANY NEW OR WORSENING SYMPTOMS. Prescriptions: Clonidine HCl 0.2 mg PO BID #60 tablet Forms: Return to Work [employer] Attestation: 02/10/17 16:57 I personally performed the services described in the documentation, reviewed and edited the documentation which was dictated to the scribe in my presence, and it accurately records my words and actions. (NIRMALA PRICE) Scribe Documentation - Scribe Written by Jamshid:: Jamshid Elliott, 02/10/2017 1514 acting as scribe for :: Morales <CHEVY LARRY - Last Filed: 02/10/17 15:11>
[2017-02-10 15:19] LABS: ALANINE AMINOTRANSFERASE 36 U/L (9-52); ALBUMIN 4.3 g/dL (3.5-5.0); ALKALINE PHOSPHATASE 52 U/L (38-126); ANION GAP 13 (5-19); ASPARTATE AMINO TRANSFERASE 26 U/L (14-36); BILIRUBIN,DIRECT 0.3 mg/dL (0.0-0.4); BILIRUBIN,TOTAL 0.5 mg/dL (0.2-1.3); BLOOD UREA NITROGEN 14 mg/dL (7-20); CALCIUM 9.2 mg/dL (8.4-10.2); CARBON DIOXIDE 29 mmol/L (22-30); CHLORIDE 101 mmol/L (98-107); GLUCOSE 114 mg/dL (75-110); SODIUM 142.7 mmol/L (137-145); TOTAL PROTEIN 7.4 g/dL (6.3-8.2)
[2017-02-10 15:25] LABS: POTASSIUM 2.9 mmol/L (3.6-5.0)
[2017-02-10] MEDS ORDERED: POTASSIUM CHLORIDE 10 MEQ TABLET.SA PO ONE (15:38)
--- NOTE | 2017-02-10 16:02 | RADIOLOGY REPORT (SQ) ---
EXAM DESCRIPTION: CHEST PA/LAT COMPLETED DATE/TIME: 02/10/2017 3:39 pm REASON FOR STUDY: cp COMPARISON: 01/26/2014 two-view chest EXAM PARAMETERS: NUMBER OF VIEWS: two views TECHNIQUE: Digital Frontal and Lateral radiographic views of the chest acquired. RADIATION DOSE: NA LIMITATIONS: none FINDINGS: LUNGS AND PLEURA: No opacities, masses or pneumothorax. No pleural effusion. MEDIASTINUM AND HILAR STRUCTURES: No masses or contour abnormalities. HEART AND VASCULAR STRUCTURES: Heart normal size. No evidence for failure. BONES: No acute findings. HARDWARE: None in the chest. OTHER: No other significant finding. IMPRESSION: NO SIGNIFICANT RADIOGRAPHIC FINDING IN THE CHEST. TECHNICAL DOCUMENTATION: JOB ID: [id number] [employer]- All Rights Reserved
--- NOTE | 2017-02-10 17:09 | EKG REPORT ---
SEVERITY:- ABNORMAL ECG - SINUS RHYTHM LEFT ATRIAL ABNORMALITY LVH WITH SECONDARY REPOLARIZATION ABNORMALITY : Confirmed by: Pedro Hays MD 10-Feb-2017 17:09:03
[2017-02-10 17:15] VITALS: BP 155/79
== END 2017-02-10 17:15 | disposition home or self-care (01) ==
LOC: ER 13:38
DX: J06.9 Acute upper respiratory infection, unspecified (principal); B97.89 Other viral agents as the cause of diseases classified elsewhere; E87.6 Hypokalemia; I10 Essential (primary) hypertension; T46.5X6A Underdosing of other antihypertensive drugs, initial encounter; Z91.128 Patient's intentional underdosing of medication regimen for other reason; Z91.14 Patient's other noncompliance with medication regimen; R05 Cough; M79.1 Myalgia; R06.2 Wheezing; R53.81 Other malaise; Z88.5 Allergy status to narcotic agent
CPT/HCPCS: 36415; 71020; 80053; 81001; 81025; 84484; 85025; 93005; 93010; 99284

== ENCOUNTER 2017-05-12 13:27 | Emergency (ER) | payer SELFPAY ==
[2017-05-12] MEDS ORDERED: ASPIRIN 81 MG TABLET, CHEWABLE PO ONE (14:08)
--- NOTE | 2017-05-12 14:13 | ER Document Report ---
ED Medical Screen (RME) - General Chief Complaint: Shortness Of Breath Stated Complaint: SHORTNESS OF BREATH, LEFT ARM PAIN Time Seen by Provider: 05/12/17 14:08 Mode of Arrival: Ambulatory Information source: Patient Notes: 51 yr old female hx of htn presents with ocnstipation, sob that mproved after vomiting. pt denies any chest pain. I have greeted and performed a rapid initial assessment of this patient. A comprehensive ED assessment and evaluation of the patient, analysis of test results and completion of the medical decision making process will be conducted by additional ED providers. PHYSICAL EXAMINATION: GENERAL: Well-appearing, well-nourished and in no acute distress. HEAD: Atraumatic, normocephalic. EYES: Pupils equal round extraocular movements intact, conjunctiva are normal. ENT: Nares patent NECK: Normal range of motion LUNGS: No respiratory distress Musculoskeletal: Normal range of motion NEUROLOGICAL: Normal speech, normal gait. PSYCH: Normal mood, normal affect. SKIN: Warm, Dry, normal turgor, no rashes or lesions noted. TRAVEL OUTSIDE OF THE [place] IN LAST 30 DAYS: No - Related Data Allergies/Adverse Reactions: acetaminophen [From Vicodin] Allergy (Verified 05/12/17 13:28) hydrocodone bitartrate [From Vicodin] Allergy (Verified 05/12/17 13:28) Past Medical History - Social History Chew tobacco use (# tins/day): No Frequency of alcohol use: None Drug Abuse: None - Past Medical History Cardiac Medical History: Reports: Hx Hypertension Denies: Hx Coronary Artery Disease Renal/ Medical History: Denies: Hx Peritoneal Dialysis Past Surgical History: Reports: Hx Section - Immunizations Hx Diphtheria, Pertussis, Tetanus Vaccination: No Physical Exam - Vital signs Vitals: Temp Pulse Resp BP Pulse Ox 97.6 F 93 21 H 209/107 H 100 05/12/17 13:32 05/12/17 13:32 05/12/17 13:32 05/12/17 13:32 05/12/17 13:32 Course - Vital Signs Vital signs: Temp Pulse Resp BP Pulse Ox 97.6 F 93 21 H 209/107 H 100 05/12/17 13:32 05/12/17 13:32 05/12/17 13:32 05/12/17 13:32 05/12/17 13:32
--- NOTE | 2017-05-12 14:25 | ER Document Report ---
ED General - General Mode of Arrival: Ambulatory TRAVEL OUTSIDE OF THE [place] IN LAST 30 DAYS: No <LEV BECK - Last Filed: 05/12/17 20:53> <DOMENICBARBIE Arana - Last Filed: 05/12/17 23:38> - General Chief Complaint: Shortness Of Breath Stated Complaint: SHORTNESS OF BREATH, LEFT ARM PAIN Time Seen by Provider: 05/12/17 14:08 Notes: Patient is a 51-year-old female with a history of hypertension presents to the emergency department complaining of vomiting and shortness of breath onset 3 days ago. Patient states that she has had intermittent vomiting which alleviates her shortness of breath. Patient also complains of chills and abdominal pain which she describes as dull and constant. Patient denies any cough or congestion chest pain, fevers, diarrhea, orthopnea, recent travels or hospitalizations. Patient mentions working at a daycare. Patient states that she is currently prescribed Clonidine (.2mg twice daily) as well as hypertension medications. Patient states she has not taken her Clondidine in 2 days and further states she is noncompliant with her hypertension medications. Patient states that her hypertension medications causes her menstrual cycle to be heavy. Patient further states she goes to [facility] for her Primary. (LEV BECK) - Related Data Allergies/Adverse Reactions: acetaminophen [From Vicodin] Allergy (Verified 05/12/17 13:28) hydrocodone bitartrate [From Vicodin] Allergy (Verified 05/12/17 13:28) Past Medical History - General Information source: Patient - Social History Smoking Status: Never Smoker Chew tobacco use (# tins/day): No Frequency of alcohol use: None Drug Abuse: None Family History: Reviewed & Not Pertinent, Malignancy Patient has suicidal ideation: No Patient has homicidal ideation: No - Past Medical History Cardiac Medical History: Reports: Hx Hypertension Past Surgical History: Reports: Hx Section - Immunizations Hx Diphtheria, Pertussis, Tetanus Vaccination: No <LEV BECK - Last Filed: 05/12/17 20:53> Review of Systems - Review of Systems Constitutional: See HPI, Chills EENT: No symptoms reported Cardiovascular: No symptoms reported Respiratory: See HPI, Short of breath Gastrointestinal: See HPI, Abdominal pain, Vomiting Genitourinary: No symptoms reported Female Genitourinary: No symptoms reported Musculoskeletal: No symptoms reported Skin: No symptoms reported Hematologic/Lymphatic: No symptoms reported Neurological/Psychological: No symptoms reported -: Yes All other systems reviewed and negative <LEV BECK - Last Filed: 05/12/17 20:53> Physical Exam <LEV BECK - Last Filed: 05/12/17 20:53> <BARBIE SHETH - Last Filed: 05/12/17 23:38> - Vital signs Vitals: Temp Pulse Resp BP Pulse Ox 97.6 F 93 21 H 209/107 H 100 05/12/17 13:32 05/12/17 13:32 05/12/17 13:32 05/12/17 13:32 05/12/17 13:32 - Notes Notes: GENERAL: Alert, interacts well. No acute distress. PERC negative. Upon immediate reassessment patient is laughing and no longer short of breath. HEAD: Normocephalic, atraumatic. EYES: Pupils equal, round, and reactive to light. Extraocular movements intact. ENT: Oral mucosa moist, tongue midline. NECK: Full range of motion. Supple. Trachea midline. LUNGS: Clear to auscultation bilaterally, no wheezes, rales, or rhonchi. No respiratory distress. HEART: Regular rate and rhythm. No murmurs, gallops, or rubs. ABDOMEN: Soft, non-tender. Non-distended. Bowel sounds present in all 4 quadrants. EXTREMITIES: Moves all 4 extremities spontaneously. No edema, radial and dorsalis pedis pulses 2/4 bilaterally. No cyanosis. NEUROLOGICAL: Alert and oriented x3. Normal speech. PSYCH: Normal affect, normal mood. SKIN: Warm, dry, normal turgor. No rashes or lesions noted. (LEV BECK) Course - Laboratory Result Diagrams: 05/12/17 14:49 05/12/17 14:49 <LEV BECK - Last Filed: 05/12/17 20:53> - Laboratory Result Diagrams: 05/12/17 14:49 05/12/17 14:49 - Diagnostic Test Radiology reviewed: Reports reviewed - Mild cardiomegaly - EKG Interpretation by Me EKG shows normal: Sinus rhythm Rate: Normal Rhythm: NSR When compared to previous EKG there are: No significant change - From previous January 2017 <BARBIE SHETH - Last Filed: 05/12/17 23:38> - Re-evaluation Re-evalutation: 05/12/17 15:46 Patient's labs within normal limits are not significant with mild cardiomegaly on chest x-ray and no other concerning findings. When reevaluating patient after clonidine administration blood pressure had come down and patient is asymptomatic at this time. Had long conversation with patient regarding following up with her family medicine doctor and advised she should have an echocardiogram and consideration of stress testing outpatient. She states she would follow-up with the clinic this week in regards to plan. Return precautions were provided. It appears patient has been having intermittent shortness of breath likely related to when her blood pressure spikes as she is asymptomatic at this time but I did talk to her about risks of possible cardiac disease and outpatient stress testing is warranted. Also discussed with her to follow-up with her primary care doctor regarding her hypertension and better need of blood pressure control. (BARBIE SHETH) - Vital Signs Vital signs: Temp Pulse Resp BP Pulse Ox 97.6 F 93 19 193/107 H 100 05/12/17 13:32 05/12/17 13:32 05/12/17 16:01 05/12/17 16:01 05/12/17 16:01 - Laboratory Laboratory results interpreted by me: 05/12/17 05/12/17 05/12/17 14:49 14:49 14:49 Hgb 9.9 L Hct 31.5 L MCV 67 L MCH 20.9 L MCHC 31.5 L RDW 17.6 H Potassium 3.4 L NT-Pro-B Natriuret Pep 210 H Discharge <LEV BECK - Last Filed: 05/12/17 20:53> <BARBIE SHETH - Last Filed: 05/12/17 23:38> - Discharge Clinical Impression: Hypertension Qualifiers: Hypertension type: unspecified Qualified Code(s): I10 - Essential (primary) hypertension Condition: Good Disposition: HOME, SELF-CARE Additional Instructions: Please follow-up with your primary care physician this week as discussed in begin to take all of your blood pressure medications as prescribed. You showed a mildly enlarged heart on your chest x-ray and I recommend that he have outpatient workup including an echocardiogram and consideration of stress testing due to your intermittent shortness of breath. Please discuss this finding is with your primary care doctor. Forms: Return to Work Referrals: THANIA MOULTON MD [Primary Care Provider] - Follow up as needed Scribe Attestation: 05/12/17 23:38 I personally performed the services described documentation, reviewed and edited the documentation which was dictated to describe my presence, and it accurately records my words and actions. (BARBIE SHETH) Scribe Documentation - Scribe Written by Scribe:: Jamshid Melendez, 05/12/2017 14:44 acting as scribe for :: Domenic <LEV BECK - Last Filed: 05/12/17 20:53>
[2017-05-12] MEDS ORDERED: CLONIDINE HCL 0.1 MG TABLET PO ONE (14:36)
[2017-05-12] MEDS ORDERED: CLONIDINE HCL 0.2 MG TABLET PO ONE (14:40)
--- NOTE | 2017-05-12 14:53 | RADIOLOGY REPORT (SQ) ---
EXAM DESCRIPTION: ACUTE ABDOMEN SERIES COMPLETED DATE/TIME: 05/12/2017 2:30 pm REASON FOR STUDY: constipation COMPARISON: Chest films 12/14/2012 NUMBER OF VIEWS: Three views. TECHNIQUE: Frontal chest, supine abdomen and upright abdomen radiographic images acquired. LIMITATIONS: None. FINDINGS: CHEST: No focal infiltrates. No pleural effusion. No pneumothorax. No worrisome pulmona ry nodules. Mild cardiomegaly FREE AIR: None. No abnormal gas collections. BOWEL GAS PATTERN: Nonobstructive pattern. No dilated loops or air fluid levels. CALCIFICATIONS: No suspicious calcifications. HARDWARE: None in the abdomen. SOFT TISSUES: No gross mass or suggestion of organomegaly. BONES: No acute fracture. No worrisome bone lesions. OTHER: No other significant finding. IMPRESSION: Grossly nonobstructive bowel gas pattern. Mild cardiomegaly. No focal pulmonary infiltrates. TECHNICAL DOCUMENTATION: JOB ID: [id number] [employer]- All Rights Reserved Reading location - IP/workstation name: [email or web address]
[2017-05-12 14:58] LABS: ABSOLUTE BASOPHILS # (AUTO) 0.1 10^3/uL (0.0-0.2); ABSOLUTE EOSINOPHILS # (AUTO) 0.1 10^3/uL (0.0-0.6); ABSOLUTE LYMPHOCYTES (AUTO) 2.1 10^3/uL (0.5-4.7); ABSOLUTE MONOCYTES (AUTO) 0.5 10^3/uL (0.1-1.4); ABSOLUTE NEUT (AUTO) 4.3 10^3/uL (1.7-8.2); BASOPHILS % (AUTO) 1.3 % (0-2); EOSINOPHILS % (AUTO) 1.1 % (0-6); HEMATOCRIT 31.5 % (36.0-47.0); HEMOGLOBIN 9.9 g/dL (12.0-15.5); MEAN CORPUSCULAR HEMOGLOBIN 20.9 pg (27.0-33.4); MEAN CORPUSCULAR HGB CONC 31.5 g/dL (32.0-36.0); MEAN CORPUSCULAR VOLUME 67 fl (80-97); MONOCYTES % (AUTO) 7.5 % (3-13); PLATELET COUNT 300 10^3/uL (150-450); RED BLOOD COUNT 4.74 10^6/uL (3.72-5.28); RED CELL DISTRIBUTION WIDTH 17.6 % (11.5-14.0); SEGMENTED NEUTROPHILS % (AUTO) 60.1 % (42-78); TOTAL CELLS COUNTED % (AUTO) 100 %; WHITE BLOOD COUNT 7.1 10^3/uL (4.0-10.5)
[2017-05-12 15:14] LABS: ALANINE AMINOTRANSFERASE 21 U/L (9-52); ALBUMIN 4.7 g/dL (3.5-5.0); ALKALINE PHOSPHATASE 46 U/L (38-126); ANION GAP 13 (5-19); ASPARTATE AMINO TRANSFERASE 22 U/L (14-36); BILIRUBIN,DIRECT 0.4 mg/dL (0.0-0.4); BILIRUBIN,TOTAL 0.4 mg/dL (0.2-1.3); BLOOD UREA NITROGEN 14 mg/dL (7-20); CALCIUM 9.8 mg/dL (8.4-10.2); CARBON DIOXIDE 26 mmol/L (22-30); CHLORIDE 104 mmol/L (98-107); GLUCOSE 101 mg/dL (75-110); POTASSIUM 3.4 mmol/L (3.6-5.0); SODIUM 143.1 mmol/L (137-145); TOTAL PROTEIN 7.9 g/dL (6.3-8.2)
[2017-05-12 16:23] VITALS: BP 193/107
--- NOTE | 2017-05-12 20:34 | EKG REPORT ---
SEVERITY:- ABNORMAL ECG - SINUS RHYTHM PROBABLE LEFT ATRIAL ABNORMALITY LVH WITH SECONDARY REPOLARIZATION ABNORMALITY : Confirmed by: Pedro Hays MD 12-May-2017 20:34:04
== END 2017-05-12 16:30 | disposition home or self-care (01) ==
LOC: ER 13:27
DX: I10 Essential (primary) hypertension (principal); R06.02 Shortness of breath; M79.602 Pain in left arm; R11.10 Vomiting, unspecified; R10.9 Unspecified abdominal pain
CPT/HCPCS: 36415; 74022; 80053; 83880; 84484; 85025; 93005; 93010; 99285

== ENCOUNTER 2017-08-21 17:22 | Emergency (ER) | payer SELFPAY ==
[2017-08-21 17:43] VITALS: BP 205/93
[2017-08-21] MEDS ORDERED: SUCRALFATE 1 GM TABLET PO ONE (19:24)
[2017-08-21] MEDS ORDERED: FAMOTIDINE 20 MG TABLET PO ONE (19:24)
[2017-08-21] MEDS ORDERED: OXYCODONE-ACETAMINOPHEN 5-325 MG TABLET PO ONE (19:24)
[2017-08-21] MEDS ORDERED: ONDANSETRON 4 MG TAB.RAPDIS PO ONE (19:26)
--- NOTE | 2017-08-21 19:54 | ER Document Report ---
ED GI/ - General Chief Complaint: Abdominal Pain Stated Complaint: ABDOMINAL PAIN Time Seen by Provider: 08/21/17 18:56 Notes: Patient is a 52 year old female that comes to the ED for chief complaint of abdominal pain in her upper abdomen that started this morning. She states it is worse on the left side, she feels some nausea, she denies vomiting. She states she woke up with the discomfort. She denies chest pain, shortness of breath, radiation to the back. She is belching frequently. She was recently started on Azithromycin because of exposure to a patient with confirmed pertussis. She denies fever chills, she did have cough but this has almost resolved. Past medical history of hypertension, , still has menstrual cycles. TRAVEL OUTSIDE OF THE [place] IN LAST 30 DAYS: No - Related Data Allergies/Adverse Reactions: acetaminophen [From Vicodin] Allergy (Verified 08/21/17 17:24) hydrocodone bitartrate [From Vicodin] Allergy (Verified 08/21/17 17:24) Past Medical History - General Information source: Patient - Social History Smoking Status: Never Smoker Frequency of alcohol use: None Drug Abuse: None Lives with: Family Family History: Reviewed & Not Pertinent, Malignancy - Past Medical History Cardiac Medical History: Reports: Hx Hypertension Denies: Hx Coronary Artery Disease Renal/ Medical History: Denies: Hx Peritoneal Dialysis Past Surgical History: Reports: Hx Section - Immunizations Hx Diphtheria, Pertussis, Tetanus Vaccination: No Review of Systems - Review of Systems Constitutional: No symptoms reported EENT: No symptoms reported Cardiovascular: No symptoms reported Respiratory: No symptoms reported Gastrointestinal: See HPI Genitourinary: No symptoms reported Female Genitourinary: No symptoms reported Musculoskeletal: No symptoms reported Skin: No symptoms reported Hematologic/Lymphatic: No symptoms reported Neurological/Psychological: No symptoms reported Physical Exam - Vital signs Vitals: Temp Pulse Resp BP Pulse Ox 98.4 F 88 20 205/93 H 98 08/21/17 17:40 08/21/17 17:40 08/21/17 17:40 08/21/17 17:40 08/21/17 17:40 - Notes Notes: GENERAL: Alert, interacts well. No acute distress. HEAD: Normocephalic, atraumatic. EYES: Pupils equal, round, and reactive to light. Extraocular movements intact. ENT: Oral mucosa moist, tongue midline. NECK: Full range of motion. Supple. Trachea midline. LUNGS: Clear to auscultation bilaterally, no wheezes, rales, or rhonchi. No respiratory distress. HEART: Regular rate and rhythm. No murmur ABDOMEN: There is reproducible tenderness in the left upper quadrant, mildly in the epigastric area, mildly in the right upper quadrant. Mid to lower abdomen benign. No guarding, rigidity, or rebound tenderness. Bowel sounds present throughout. EXTREMITIES: Moves all 4 extremities spontaneously. No edema, normal radial and dorsalis pedis pulses bilaterally. No cyanosis. BACK: no cervical, thoracic, lumbar midline tenderness. No saddle anesthesia, normal distal neurovascular exam. NEUROLOGICAL: Alert and oriented x3. Normal speech. [cranial nerves II through XII grossly intact]. PSYCH: Normal affect, normal mood. SKIN: Warm, dry, normal turgor. No rashes or lesions noted. Course - Re-evaluation Re-evalutation: EKG shows anterior questionable ST segment depressions although this is not to significant degree and there is anterior J-point elevation. Discussed this with Dr. Davis. Troponin was checked and is negative. Patient has had symptoms since this morning. She has not had pain in her chest. Pain is reproducible on examination with palpation of the abdomen. She is very hypertensive. Does not appear to be ACS in nature. After treatment for stomach /upper intestinal symptoms patient's symptoms resolved. She had been belching frequently. CBC, chemistry, lipase unremarkable except for microcytic anemia which is not significantly changed from prior. She states her primary already knows about this and she is supposed to follow-up in regards to this. Urine likely contaminated by menstrual cycle. After treatments and workup patient is asking to leave. She states that she wants to stop taking her azithromycin because symptoms started afterwards, however recommended because this was prophylaxis for pertussis exposure that she complete this while she is being medicated for her symptoms. She also states she will resume her normal blood pressure medications. Her potassium will be checked again after supplement tonight with her primary provider. Discussed follow-up, treatment, return precautions in detail. Stable at time of discharge. - Vital Signs Vital signs: Temp Pulse Resp BP Pulse Ox 98.4 F 88 20 205/93 H 98 08/21/17 17:40 08/21/17 17:40 06/08/18 17:40 08/21/17 17:40 08/21/17 17:40 - Laboratory Result Diagrams: 08/21/17 20:20 08/21/17 20:20 Laboratory results interpreted by me: 08/21/17 08/21/17 08/21/17 20:13 20:20 20:20 Hgb 8.6 L Hct 28.9 L MCV 60 L MCH 18.0 L MCHC 29.9 L RDW 17.6 H Sodium 146.1 H Potassium 3.1 L Glucose 112 H Urine Protein 30 H Urine Blood LARGE H Urine Urobilinogen 4.0 H Discharge - Discharge Clinical Impression: Upper abdominal pain Condition: Stable Disposition: HOME, SELF-CARE Additional Instructions: Your upper abdominal pain appears to be coming from your gastrointestinal tract , probably the stomach bag and she is gastritis). Take the Carafate and Pepcid as prescribed, only take the pain medication if needed. Avoid spicy food, caffeine, NSAIDs, alcohol, smoking. Your workup shows anemia and your potassium is low. Anemia is probably related to your menstrual cycles, potassium being low might be related to medication. You has been given a supplement dose tonight of potassium, this needs to be rechecked with primary care along with recheck of your blood pressure. You may need iron infusions for your anemia, he may need additional testing for your upper abdominal pain including H. pylori testing or endoscopy. Return to the emergency department if you worsen in anyway including vomiting, black stools, vomiting blood, severe pain, fever, or any other concerning or worsening symptoms. Prescriptions: Morphine Sulfate [Morphine Ir 15 Mg Tablet] 15 mg PO Q4HP PRN #8 tablet PRN Reason: Famotidine [Pepcid 20 mg Tablet] 20 mg PO BID #20 tablet Sucralfate [Carafate 1 gm Tablet] 1 gm PO QID #20 tablet Forms: Return to Work, Elevated Blood Pressure Referrals: THANIA MOULTON MD [Primary Care Provider] - Follow up as needed
[2017-08-21 20:40] LABS: ABSOLUTE EOSINOPHILS # (AUTO) 0.3 10^3/uL (0.0-0.6); ABSOLUTE LYMPHOCYTES (AUTO) 2.3 10^3/uL (0.5-4.7); ABSOLUTE MONOCYTES (AUTO) 0.6 10^3/uL (0.1-1.4); ABSOLUTE NEUT (AUTO) 3.4 10^3/uL (1.7-8.2); BASOPHILS % (AUTO) 0.5 % (0-2); EOSINOPHILS % (AUTO) 4.4 % (0-6); HEMATOCRIT 28.9 % (36.0-47.0); HEMOGLOBIN 8.6 g/dL (12.0-15.5); LYMPHOCYTES % (AUTO) 34.8 % (13-45); MEAN CORPUSCULAR HGB CONC 29.9 g/dL (32.0-36.0); MONOCYTES % (AUTO) 8.6 % (3-13); PLATELET COUNT 319 10^3/uL (150-450); RED BLOOD COUNT 4.79 10^6/uL (3.72-5.28); RED CELL DISTRIBUTION WIDTH 17.6 % (11.5-14.0); SEGMENTED NEUTROPHILS % (AUTO) 51.7 % (42-78); TOTAL CELLS COUNTED % (AUTO) 100 %; WHITE BLOOD COUNT 6.6 10^3/uL (4.0-10.5)
[2017-08-21 20:46] LABS: MEAN CORPUSCULAR VOLUME 60 fl (80-97)
[2017-08-21 20:47] LABS: ALANINE AMINOTRANSFERASE 18 U/L (9-52); ALBUMIN 4.5 g/dL (3.5-5.0); ALKALINE PHOSPHATASE 50 U/L (38-126); ANION GAP 15 (5-19); ASPARTATE AMINO TRANSFERASE 22 U/L (14-36); BILIRUBIN,DIRECT 0.3 mg/dL (0.0-0.4); BILIRUBIN,TOTAL 0.3 mg/dL (0.2-1.3); BLOOD UREA NITROGEN 13 mg/dL (7-20); CALCIUM 9.9 mg/dL (8.4-10.2); CARBON DIOXIDE 28 mmol/L (22-30); CHLORIDE 103 mmol/L (98-107); GLUCOSE 112 mg/dL (75-110); LIPASE 74.3 U/L (23-300); POTASSIUM 3.1 mmol/L (3.6-5.0); SODIUM 146.1 mmol/L (137-145); TOTAL PROTEIN 7.8 g/dL (6.3-8.2)
[2017-08-21 21:06] LABS: ANISOCYTOSIS 1+
[2017-08-21 21:07] LABS: PLATELET COMMENT ADEQUATE; POLYCHROMASIA SLIGHT
[2017-08-21 21:08] LABS: OVALOCYTES 1+; PLATELET LARGE PRESENT
[2017-08-21 21:09] LABS: POIKILOCYTOSIS 1+; TARGET CELLS SLIGHT
[2017-08-21 21:37] LABS: APPEARANCE,URINE SLIGHTLY-CLOUDY; BILIRUBIN,URINE NEGATIVE (NEGATIVE); COLOR,URINE YELLOW; GLUCOSE, URINE NEGATIVE (NEGATIVE); KETONES,URINE NEGATIVE (NEGATIVE); LEUKOCYTE ESTERASE,URINE NEGATIVE (NEGATIVE); NITRITE,URINE NEGATIVE (NEGATIVE); PROTEIN,URINE 30 mg/dL (NEGATIVE); URINE SPECIFIC GRAVITY 1.015
--- NOTE | 2017-08-21 21:44 | EKG REPORT ---
SEVERITY:- ABNORMAL ECG - SINUS RHYTHM PROBABLE LEFT ATRIAL ABNORMALITY LVH WITH SECONDARY REPOLARIZATION ABNORMALITY : Confirmed by: Sylvia Bejarano MD 21-Aug-2017 21:43:53
[2017-08-21] MEDS ORDERED: POTASSIUM CHLORIDE 10 MEQ TABLET.SA PO ONE (21:59)
[2017-08-25 08:21] LABS: PATH REVIEW PATHOLOGIST REVIEWED
== END 2017-08-21 22:22 | disposition home or self-care (01) ==
LOC: ER 17:22
DX: R10.10 Upper abdominal pain, unspecified (principal); I10 Essential (primary) hypertension; Z88.6 Allergy status to analgesic agent
CPT/HCPCS: 93005; 99284; 36415; 83690; 85025; 81025; 80053; 81001; 84484; 93010; S0119

== ENCOUNTER 2017-10-19 18:50 | Emergency (ER) | payer SELFPAY ==
--- NOTE | 2017-10-19 20:00 | ER Document Report ---
ED Medical Screen (RME) - General Chief Complaint: Leg Pain Stated Complaint: LEG NUMBNESS Time Seen by Provider: 10/19/17 19:58 Mode of Arrival: Ambulatory Information source: Patient Notes: Patient is a 52-year-old female who presents with left lower extremity edema and calf pain. Patient reports his pain has been ongoing for approximately 3 weeks with worsening over the last couple of days. Patient reports that the pain is worse with movement. Pain feels like a throbbing sensation. Patient denies any recent travel, denies any hormone replacement therapy, denies any recent surgeries, denies any history of DVT or PE. Exam: Tenderness to palpation to posterior lower left extremity. Mild edema noted, no erythema. I have greeted and performed a rapid initial assessment of this patient. A comprehensive ED assessment and evaluation of the patient, analysis of test results and completion of the medical decision making process will be conducted by additional ED providers. Dictation of this chart was performed using voice recognition software; therefore, there may be some unintended grammatical errors. TRAVEL OUTSIDE OF THE [place] IN LAST 30 DAYS: No - Related Data Allergies/Adverse Reactions: acetaminophen [From Vicodin] Allergy (Verified 08/21/17 17:24) hydrocodone bitartrate [From Vicodin] Allergy (Verified 08/21/17 17:24) Past Medical History - Past Medical History Cardiac Medical History: Reports: Hx Hypertension Denies: Hx Coronary Artery Disease Renal/ Medical History: Denies: Hx Peritoneal Dialysis Past Surgical History: Reports: Hx Section - Immunizations Hx Diphtheria, Pertussis, Tetanus Vaccination: No Physical Exam - Vital signs Vitals: Temp Pulse Resp BP Pulse Ox 98.0 F 87 87 H 189/85 H 100 10/19/17 19:06 10/19/17 19:06 10/19/17 19:06 10/19/17 19:06 10/19/17 19:06 Course - Vital Signs Vital signs: Temp Pulse Resp BP Pulse Ox 98.0 F 87 87 H 189/85 H 100 10/19/17 19:06 10/19/17 19:06 10/19/17 19:06 10/19/17 19:06 10/19/17 19:06 Doctor's Discharge - Discharge Referrals: THANIA MOULTON MD [Primary Care Provider] - Follow up as needed
[2017-10-19 21:26] LABS: ABSOLUTE EOSINOPHILS # (AUTO) 0.2 10^3/uL (0.0-0.6); ABSOLUTE LYMPHOCYTES (AUTO) 2.5 10^3/uL (0.5-4.7); ABSOLUTE MONOCYTES (AUTO) 0.5 10^3/uL (0.1-1.4); ABSOLUTE NEUT (AUTO) 3.5 10^3/uL (1.7-8.2); BASOPHILS % (AUTO) 0.6 % (0-2); EOSINOPHILS % (AUTO) 2.3 % (0-6); HEMATOCRIT 31.6 % (36.0-47.0); HEMOGLOBIN 9.2 g/dL (12.0-15.5); LYMPHOCYTES % (AUTO) 36.9 % (13-45); MEAN CORPUSCULAR HEMOGLOBIN 17.4 pg (27.0-33.4); MEAN CORPUSCULAR HGB CONC 29.2 g/dL (32.0-36.0); MEAN CORPUSCULAR VOLUME 60 fl (80-97); PLATELET COUNT 280 10^3/uL (150-450); RED BLOOD COUNT 5.29 10^6/uL (3.72-5.28); RED CELL DISTRIBUTION WIDTH 18.7 % (11.5-14.0); SEGMENTED NEUTROPHILS % (AUTO) 52.2 % (42-78); TOTAL CELLS COUNTED % (AUTO) 100 %; WHITE BLOOD COUNT 6.8 10^3/uL (4.0-10.5)
[2017-10-19 21:42] LABS: ALANINE AMINOTRANSFERASE 23 U/L (9-52); ALBUMIN 4.5 g/dL (3.5-5.0); ALKALINE PHOSPHATASE 48 U/L (38-126); ANION GAP 11 (5-19); ASPARTATE AMINO TRANSFERASE 22 U/L (14-36); BILIRUBIN,DIRECT 0.3 mg/dL (0.0-0.4); BILIRUBIN,TOTAL 0.3 mg/dL (0.2-1.3); BLOOD UREA NITROGEN 13 mg/dL (7-20); CALCIUM 9.8 mg/dL (8.4-10.2); CARBON DIOXIDE 30 mmol/L (22-30); CHLORIDE 103 mmol/L (98-107); GLUCOSE 99 mg/dL (75-110); POTASSIUM 3.4 mmol/L (3.6-5.0); SODIUM 144.4 mmol/L (137-145); TOTAL PROTEIN 7.8 g/dL (6.3-8.2)
[2017-10-19 22:03] LABS: ANISOCYTOSIS 1+; OVALOCYTES SLIGHT; PLATELET COMMENT ADEQUATE; POIKILOCYTOSIS SLIGHT; SCHISTOCYTES SLIGHT; TEAR DROP CELLS SLIGHT
[2017-10-20 02:18] VITALS: BP 212/104
--- NOTE | 2017-10-20 04:02 | ER Document Report ---
ED Extremity Problem, Lower - General Chief Complaint: Leg Pain Stated Complaint: LEG NUMBNESS Time Seen by Provider: 10/19/17 19:58 Mode of Arrival: Ambulatory TRAVEL OUTSIDE OF THE [place] IN LAST 30 DAYS: No - HPI Patient complains to provider of: Pain - 52-year-old female who presents for evaluation of worsening pain in the left lower extremity which is developed over the last several weeks, she notes that she has had issues in the past related to her sciatic nerve and nerve pain this is reminiscent of that, she works on her feet for extended period of times and her boss encouraged her to come to the emergency room. She has been using Tylenol with minimal symptomatic improvement. She notes that there is a pain that comes down from the left knee to the left foot. She denies any fevers or chills, abdominal pain diarrhea constipation dysuria rashes shortness of breath chest pain lightheadedness or other symptoms. - Related Data Allergies/Adverse Reactions: acetaminophen [From Vicodin] Allergy (Verified 08/21/17 17:24) hydrocodone bitartrate [From Vicodin] Allergy (Verified 08/21/17 17:24) Past Medical History - General Information source: Patient - Social History Smoking Status: Unknown if Ever Smoked Chew tobacco use (# tins/day): No Frequency of alcohol use: None Drug Abuse: None Family History: Reviewed & Not Pertinent, Malignancy Patient has suicidal ideation: No Patient has homicidal ideation: No - Past Medical History Cardiac Medical History: Reports: Hx Hypertension Denies: Hx Coronary Artery Disease Renal/ Medical History: Denies: Hx Peritoneal Dialysis Past Surgical History: Reports: Hx Section - Immunizations Hx Diphtheria, Pertussis, Tetanus Vaccination: No Review of Systems - Review of Systems -: Yes All other systems reviewed and negative Physical Exam - Vital signs Vitals: Temp Pulse Resp BP Pulse Ox 98.0 F 87 87 H 189/85 H 100 10/19/17 19:06 10/19/17 19:06 10/19/17 19:06 10/19/17 19:06 10/19/17 19:06 - General General appearance: Appears well In distress: None - HEENT Head: Normocephalic Eyes: Normal Conjunctiva: Normal Pupils: PERRL - Respiratory Respiratory status: No respiratory distress Chest status: Nontender Breath sounds: Normal Chest palpation: Normal - Cardiovascular Rhythm: Regular Heart sounds: Normal auscultation Murmur: No - Abdominal Inspection: Normal Distension: No distension Bowel sounds: Normal - Back Back: Tender - Minimal tenderness in the paraspinal muscles no midline tenderness in the lumbar spine - Extremities General upper extremity: Normal inspection General lower extremity: Other - The pelvis is stable, there is normal range of motion of the hip as well as the knees and ankles Normal sensation in the distal distribution bilaterally in the feet with brisk capillary refill and strong PT pulses bilaterally. Patient with a negative right straight leg raise test Patient with a positive left straight leg raise test. Patient with tenderness to palpation over the peroneal nerve distribution at the proximal fibula of the left leg. No appreciable foot drop ambulatory without assistance. - Neurological Neuro grossly intact: Yes Orientation: AAOx4 [place] Coma Scale Eye Opening: Spontaneous Motor strength normal: LUE, RUE, LLE, RLE Knee - Reflex grade: 2 = Normal - Psychological Associated symptoms: Normal affect Course - Re-evaluation Re-evalutation: This 52-year-old female presented for evaluation of pain in the left lower extremity for the last several weeks. She notes that the pain has a shooting quality and comes from the back of her leg around down her left calf into the foot worse when she extends her bends down. She has been seen for this previously has been treated for sciatic nerve pain. She does not take anything for this regularly. On examination she does have symptoms to suggest possible radicular component she does have a positive straight leg raise test on the left. She is tenderness over the peroneal distribution of the proximal fibula as well. I discussed treatment options for this patient including medication to reduce nerve pain such as gabapentin and Lidoderm. She is ambulatory without assistance in the emergency department have discussed with her the need for strengthening and physical therapy. She is agreeable at this time to try gabapentin and Lidoderm for symptomatic relief. At this time she does not have symptoms to suggest some thromboembolic process, a vascular process, or a intrinsic muscular problem as an underlying cause of her pain. She has noted hypertension she declined treatment in the emergency department for elevated blood pressure and said that she had not taken her medication prior to arrival, she would like to leave at this time cannot be treated for blood pressure despite it being markedly elevated. I talked to her about the importance of following up with her primary physician in regards to her blood pressure as well as her lower leg pain. In addition this patient had an incorrectly entered respiratory rate of 87, this was her pulse rate via pulse ox she was breathing normally at approximately 16 times per minute. I spoke with her about the importance of return for any worsening numbness or weakness in the lower extremities or inability to void normally. - Vital Signs Vital signs: Temp Pulse Resp BP Pulse Ox 97.8 F 78 16 212/104 H 100 10/20/17 02:10 10/20/17 02:10 10/20/17 02:10 10/20/17 02:10 10/20/17 02:10 - Laboratory Result Diagrams: 10/19/17 20:55 10/19/17 20:55 Laboratory results interpreted by me: 10/19/17 10/19/17 20:55 20:55 RBC 5.29 H Hgb 9.2 L Hct 31.6 L MCV 60 L MCH 17.4 L MCHC 29.2 L RDW 18.7 H Potassium 3.4 L Discharge - Discharge Clinical Impression: Leg pain, left Condition: Stable Disposition: HOME, SELF-CARE Additional Instructions: You were seen today in the emergency department for your leg pain. He had an evaluation including a physical exam, is likely related to a nerve that is irritated in your leg. you should use the medications prescribed to you as directed, call your doctor tomorrow to schedule follow-up appointment. In case of any worsening numbness or weakness fevers chills or loss of the ability to control your bladder or bowel suture return to the emergency room. Prescriptions: Gabapentin 300 mg PO BID 7 Days #20 capsule Lidocaine HCl [Xylocaine 5% Ointment 35.44 gm] 35.44 applic TP BID #2 tube Forms: Special Work Note
--- NOTE | 2017-10-20 15:59 | XCELERA REPORT ---
[address] [address] Lower Extremity Venous Evaluation Name: DARIUS ROMAN Age: 52 yrs Gender: Female : 1965 Patient Status: Preadmit Patient Location: ER Study Date: 10/19/2017 10:41 PM Procedure: Color flow and duplex imaging of the veins of the left lower extremity as well as the right Common Femoral vein. Reason For Study: LLE pain Ordering Physician: RADHA MARIE Performed By: Rosio Nazario Right Sided Venous Evaluation The right common femoral vein is fully compressible. Spontaneous and phasic flow is present in the right common femoral vein. Left Sided Venous Evaluation Normal vessel filling wall to wall, compression and augmentation as well as Colour flow down to the infrageniculate veins. Interpretation Summary No duplex evidence of DVT or obstruction in the left lower extremity nor in the right Common Femoral vein. : CESIA MARIE > Sabino Turk
== END 2017-10-20 02:19 | disposition home or self-care (01) ==
LOC: ER 18:50
DX: M79.605 Pain in left leg (principal); Z88.6 Allergy status to analgesic agent
CPT/HCPCS: 36415; 80053; 85025; 93971; 99284

== ENCOUNTER 2017-12-10 17:24 | Emergency (ER) | payer MEDICAID ==
[2017-12-10 17:34] VITALS: BP 198/92
--- NOTE | 2017-12-10 17:41 | ER Document Report ---
HPI - HPI Patient complains to provider of: left knee pain Onset: Other - 3 weeks Onset/Duration: Persistent Pain Level: 5 Context: 52 yo female with lateral left knee pain for 3 weeks. Worse with flexion and walking. Hx leg pain in the past. No injury. Evaluted for DVT twice before, both negative. Associated Symptoms: None Exacerbated by: Walking - flexion Relieved by: Food - ROS ROS below otherwise negative: Yes Systems Reviewed and Negative: Yes All other systems reviewed and negative - REPRODUCTIVE Reproductive: DENIES: : Past Medical History - General Information source: Patient - Social History Smoking Status: Never Smoker Lives with: Family Family History: Reviewed & Not Pertinent, Malignancy - Past Medical History Cardiac Medical History: Reports: Hx Hypertension Past Surgical History: Reports: Hx Section - Immunizations Hx Diphtheria, Pertussis, Tetanus Vaccination: No Vertical Provider Document - CONSTITUTIONAL Agree With Documented VS: Yes Exam Limitations: No Limitations General Appearance: No Apparent Distress - INFECTION CONTROL TRAVEL OUTSIDE OF THE [place] IN LAST 30 DAYS: No - MUSCULOSKELETAL/EXTREMETIES Musculoskeletal/Extremeties: MAEW, FROM, Tender - over the proximal left fibula , ? bursitis, not red, not hot, calf normal, No Edema Course - Re-evaluation Re-evalutation: 12/10/17 18:32 X-rays negative per rad I will place the patient in a knee immobilizer because she tends to be most tender over the proximal fibula. Could be a bursitis. I will treat with anti-inflammatory medication. - Vital Signs Vital signs: Temp Pulse Resp BP Pulse Ox 97.5 F 90 20 198/92 H 98 12/10/17 17:31 12/10/17 17:31 12/10/17 17:31 12/10/17 17:31 12/10/17 17:31 Procedures - Immobilization Left Leg Time completed: 18:35 Pre-Proc Neuro Vasc Exam: Normal Immobilizer type: Knee immobilizer Performed by: PCT Post-Proc Neuro Vasc Exam: Normal Alignment checked and good: Yes Discharge - Discharge Clinical Impression: Left lateral knee pain Condition: Good Disposition: HOME, SELF-CARE Instructions: Knee Immobilizing Splint ([facility]), Sprained Knee ([facility]) Additional Instructions: Motrin 3 times a day for inflammation and pain Knee immobilizer See the orthopedic doctor Prescriptions: Ibuprofen [Motrin 600 mg Tablet] 600 mg PO Q8HP PRN #30 tablet PRN Reason: Forms: Return to Work Referrals: GROVER CHAVIS MD [ACTIVE STAFF] - Follow up tomorrow
--- NOTE | 2017-12-10 18:24 | RADIOLOGY REPORT (SQ) ---
EXAM DESCRIPTION: KNEE LEFT 4 VIEW COMPLETED DATE/TIME: 12/10/2017 6:03 pm REASON FOR STUDY: pain at proximal fibula COMPARISON: None. EXAM PARAMETERS: NUMBER OF VIEWS: Four views. TECHNIQUE: AP, lateral and both oblique radiographic images acquired of the left knee. LIMITATIONS: None. FINDINGS: MINERALIZATION: Normal. BONES: No acute fracture or dislocation. No worrisome bone lesions. JOINTS: No effusion. SOFT TISSUES: No significant soft tissue swelling. No radiopaque foreign body. OTHER: No other significant finding. IMPRESSION: NO FRACTURE. TECHNICAL DOCUMENTATION: JOB ID: [id number] [employer]- All Rights Reserved Reading location - IP/workstation name: [email or web address]
== END 2017-12-10 19:09 | disposition home or self-care (01) ==
LOC: ER 17:24
DX: M25.562 Pain in left knee (principal); I10 Essential (primary) hypertension
CPT/HCPCS: 99283; 73564; L1830

== ENCOUNTER 2018-02-03 14:01 | Emergency (ER) | payer MEDICAID ==
[2018-02-03] MEDS ORDERED: ACETAMINOPHEN 325 MG TABLET PO ONE (14:04)
--- NOTE | 2018-02-03 14:45 | ER Document Report ---
ED Extremity Problem, Lower - General Chief Complaint: Ankle Injury Stated Complaint: LEFT ANKLE PAIN Time Seen by Provider: 02/03/18 14:41 Mode of Arrival: Wheelchair Information source: Patient Notes: 52-year-old female presents to ED for complaint of pain to his left foot and ankle. She states she injured her ankle when she stepped in a hole 2 days ago when she stepped in a hole. She is alert and oriented respirations regular and unlabored speaking in full sentences. She does have elevated blood pressure 219 /104 saw her. TRAVEL OUTSIDE OF THE [place] IN LAST 30 DAYS: No - HPI Patient complains to provider of: Injury, Pain, Swelling Location: Ankle, Foot Occurred: Other - 2 days ago Where: Outdoors, Other - Stepped in a hole Onset/Duration: Sudden Quality of pain: Sharp, Throbbing Severity: Severe Pain Level: 5 Context: Twisted Recent injury: Yes Associated symptoms: Painful ambulation Exacerbated by: Movement, Walking Relieved by: Nothing - Related Data Allergies/Adverse Reactions: acetaminophen [From Vicodin] Allergy (Verified 02/03/18 14:03) hydrocodone bitartrate [From Vicodin] Allergy (Verified 02/03/18 14:03) Past Medical History - General Information source: Patient - Social History Smoking Status: Never Smoker Cigarette use (# per day): No Chew tobacco use (# tins/day): No Smoking Education Provided: No Lives with: Family Family History: Reviewed & Not Pertinent, Malignancy Patient has suicidal ideation: No - Past Medical History Cardiac Medical History: Reports: Hx Hypertension Pulmonary Medical History: Reports: None EENT Medical History: Reports: None Neurological Medical History: Reports: None Endocrine Medical History: Reports: None Renal/ Medical History: Reports: None Malignancy Medical History: Reports: None GI Medical History: Reports: None Musculoskeletal Medical History: Reports None Skin Medical History: Reports None Psychiatric Medical History: Reports: None Traumatic Medical History: Reports: None Infectious Medical History: Reports: None Past Surgical History: Reports: Hx Section - Immunizations Hx Diphtheria, Pertussis, Tetanus Vaccination: No Review of Systems - Review of Systems Notes: REVIEW OF SYSTEMS: CONSTITUTIONAL : Denies fever, chills, or sweats. Denies recent illness. EENT: Denies eye, ear, throat, or mouth pain or symptoms. Denies nasal or sinus congestion or discharge. Denies throat, tongue, or mouth swelling or difficulty swallowing. CARDIOVASCULAR: Denies chest pain. Denies palpitations or racing or irregular heart beat. Denies ankle edema. RESPIRATORY: Denies cough, cold, or chest congestion. Denies shortness of breath, difficulty breathing, or wheezing. GASTROINTESTINAL: Denies abdominal pain or distention. Denies nausea, vomiting , or diarrhea. Denies blood in vomitus, stools, or per rectum. Denies black, tarry stools. Denies constipation. GENITOURINARY: Denies difficulty urinating, painful urination, burning, frequency, blood in urine, or discharge. FEMALE GENITOURINARY: Denies vaginal bleeding, heavy or abnormal periods, irregular periods. Denies vaginal discharge or odor. MUSCULOSKELETAL: Denies back or neck pain or stiffness. Pain is swelling to the left foot and ankle. SKIN: Denies rash, lesions or sores. HEMATOLOGIC : Denies easy bruising or bleeding. LYMPHATIC: Denies swollen, enlarged glands. NEUROLOGICAL: Denies confusion or altered mental status. Denies passing out or loss of consciousness. Denies dizziness or lightheadedness. Denies headache. Denies weakness or paralysis or loss of use of either side. Denies problems with gait or speech. Denies sensory loss, numbness, or tingling. Denies seizures. PHYSICAL EXAMINATION: GENERAL: Well-appearing, well-nourished and in no acute distress. HEAD: Atraumatic, normocephalic. EYES: Pupils equal round and reactive to light, extraocular movements intact, conjunctiva are normal. ENT: Nares patent, oropharynx clear without exudates. Moist mucous membranes. NECK: Normal range of motion, supple without lymphadenopathy LUNGS: Breath sounds clear to auscultation bilaterally and equal. No wheezes rales or rhonchi. HEART: Regular rate and rhythm without murmurs ABDOMEN: Soft, nontender, nondistended abdomen. No guarding, no rebound. No masses appreciated. Female : deferred Musculoskeletal: Tenderness to the left ankle foot lateral side with mild swelling. Pain with any range of motion. NEUROLOGICAL: Cranial nerves grossly intact. Normal speech, normal gait. Normal sensory, motor exams PSYCH: Normal mood, normal affect. SKIN: Warm, Dry, normal turgor, no rashes or lesions noted. PSYCHIATRIC: Denies anxiety or stress. Denies depression, suicidal ideation, or homicidal ideation. ALL OTHER SYSTEMS REVIEWED AND NEGATIVE. Dictation was performed using [employer] voice recognition software Physical Exam - Vital signs Vitals: Temp Pulse Resp BP Pulse Ox 97.8 F 89 16 219/109 H 99 02/03/18 14:12 02/03/18 14:12 02/03/18 14:12 02/03/18 14:12 02/03/18 14:12 Course - Re-evaluation Re-evalutation: 02/03/18 17:57 The patient is nontoxic appearing with stable vitals. They are afebrile. Ankle exam shows no deformities with no obvious ligament instability. There is a normal pulse and sensation distally. There is no redness or signs of infection. X-rays show no acute fracture per the radiologist. Patient will be placed in an Tom wrap for comfort. Crutches will be offered and given if requested. Patient will be instructed to follow-up with not better in 1 week, sooner for increasing pain, fever, redness, numbness, tingling, weakness, any further concerns. Patient will be instructed to rest, ice, elevate their ankle. Patient states she also always has elevated blood pressure and she is on multiple blood pressure medications. I did inform her that she needs to follow- up with her primary doctor ready to schedule a follow-up visit for this elevated blood pressures but this was very high. She states this is what her blood pressure always runs. - Vital Signs Vital signs: Temp Pulse Resp BP Pulse Ox 97.9 F 96 16 203/101 H 100 02/03/18 16:05 02/03/18 16:05 02/03/18 16:05 02/03/18 16:05 02/03/18 16:05 - Diagnostic Test Radiology reviewed: Image reviewed, Reports reviewed Procedures - Immobilization Left Ankle Time completed: 15:35 Pre-Proc Neuro Vasc Exam: Normal Immobilizer type: Tom wrap, Ankle stirrup Performed by: PCT Post-Proc Neuro Vasc Exam: Normal Notes: 02/03/18 16:00 Patient refused crutches Discharge - Discharge Clinical Impression: Left ankle sprain Qualifiers: Encounter type: initial encounter Involved ligament of ankle: unspecified ligament Qualified Code(s): S93.402A - Sprain of unspecified ligament of left ankle, initial encounter Heel spur Qualifiers: Laterality: left Qualified Code(s): M77.32 - Calcaneal spur, left foot Condition: Stable Disposition: HOME, SELF-CARE Additional Instructions: SPRAINED ANKLE: Your sprained ankle results from stretching or tearing of the ligaments which support the ankle. This usually results from twisting the foot inward and under. The ligaments will require time and protection in order to heal properly. Many ankle sprains are quite disabling, and should be taken seriously. The usual treatment for an ankle sprain is cold packs; protection with tape , splints, or wraps; elevation; and staying off the ankle for at least a day. As the ankle improves, you can walk IF it's not painful to bear weight. Sports are best postponed until healing is complete. More serious sprains usually require strengthening exercises after early healing. Your physician has assessed the seriousness of the ligament injury to your ankle. However, the treatment may change, depending on how your ankle progresses. If further exams were recommended, it is important that you follow through. Call the doctor if your foot becomes numb, painful, or severely swollen. ANKLE STIRRUP SPLINT: You are to use an ankle brace called a stirrup splint. This type of brace allows you to place greater stresses on the ankle without risk of re-injury, and is often used for more severe ankle injuries such as avulsion fractures and ligament ruptures. The splint can be worn over a sock or tape. For proper support, wear the splint with a shoe over it. It's important that the splint fit properly. Adjust the heel tension, if needed. If your splint has air bladders, peel back the bottom of each air bladder, then move the Velcro attachment of the heel strap up or down. Air bladder pressure can be adjusted by pulling up the valve at the top, threading the air tube down into the main bladder, then blowing air into the bladder or squeezing it out. The two sides of the stirrup can be moved forward or back on your ankle by changing the attachment of the main straps. If you are unable to use the ankle comfortably in the splint, return for re -evaluation. TOM WRAP: A compression dressing (tom wrap) has been placed. This helps hold the area still. It limits swelling and internal bleeding. The wrap should be comfortably snug -- not tight. You should feel a sense of pressure, but not severe pain under the wrap. Unless the physician tells you otherwise, you can adjust the wrap for comfort. If the wrap causes symptoms suggesting it's too tight -- uncomfortable pressure, swelling or discoloration beyond the wrap, numbness, or severe pain - - you must loosen the wrap. If these symptoms don't resolve promptly, return for re-evaluation. ICE & ELEVATION: Apply ice packs frequently against the painful area. Many different schedules are recommended, such as "20 minutes on, 20 minutes off" or "one hour ice, two hours rest." If you need to work, you may need to go longer between ice treatments. You should plan to have the area ice packed AT LEAST one- fourth of the time. The ice should be applied over the wrap, tape, or splint, or over a layer of cloth -- not directly against the skin. Some ice bags have a built-in cloth and can be put directly on the skin. Your injured part should be elevated as much as possible over the next 48 hours. Try to keep the injury above the level of the heart. Avoid use of the injured area. Elevation and rest will decrease the swelling. USE OF [id number] IBUPROFEN: Ibuprofen (Advil, Nuprin, Medipren, Motrin IB) is a medication for fever and pain control. In addition, it has anti- inflammatory effects which may be beneficial, especially in the treatment of injuries. It's best to take ibuprofen with food. Persons with ulcer disease or allergy to aspirin should notify their physician of this before taking ibuprofen. Ibuprofen can be given every four to six hours, for a total of four doses daily. Age Pain or fever dose Antiinflammatory dose 6-8 yr 200 mg (1 tab) 200 mg (1 tab) 9-11 yr 200 mg (1 tab) 200-400 mg (1-2 tab) 11-14 yr 200-400 mg (1-2 tab) 400 mg (2 tab) 15-adult 400 mg (2 tab) 600 mg (3 tab) FOLLOW-UP CARE: If you have been referred to a physician for follow-up care, call the physician s office for an appointment as you were instructed or within the next two days. If you experience worsening or a significant change in your symptoms, notify the physician immediately or return to the Emergency Department at any time for re-evaluation. Forms: Elevated Blood Pressure Referrals: LOAN QUESADA DO [ACTIVE STAFF] - Follow up as needed GROVER CHAVIS MD [ACTIVE STAFF] - Follow up as needed
[2018-02-03] MEDS ORDERED: KETOROLAC TROMETHAMINE 60 MG/2 ML SDV IM ONE (15:01)
--- NOTE | 2018-02-03 15:22 | RADIOLOGY REPORT (SQ) ---
EXAM DESCRIPTION: FOOT LEFT COMPLETE COMPLETED DATE/TIME: 02/03/2018 3:07 pm REASON FOR STUDY: fell in a hole COMPARISON: None. NUMBER OF VIEWS: Three views. TECHNIQUE: AP, lateral and oblique radiographic images acquired of the left foot. LIMITATIONS: None. FINDINGS: MINERALIZATION: Normal. BONES: Dorsal and plantar calcaneal spurs. No acute osseous abnormality. JOINTS: No effusions. SOFT TISSUES: No soft tissue swelling. No foreign body. OTHER: No other significant finding. IMPRESSION: Calcaneal spurs. No acute osseous abnormality. TECHNICAL DOCUMENTATION: JOB ID: [id number] [employer]- All Rights Reserved Reading location - IP/workstation name: [email or web address]
--- NOTE | 2018-02-03 15:32 | RADIOLOGY REPORT (SQ) ---
EXAM DESCRIPTION: ANKLE LEFT COMPLETE COMPLETED DATE/TIME: 02/03/2018 3:07 pm REASON FOR STUDY: fell in a hole COMPARISON: None. NUMBER OF VIEWS: Three views. TECHNIQUE: AP, lateral, and oblique radiographic images acquired of the left ankle. LIMITATIONS: None. FINDINGS: MINERALIZATION: Normal. BONES: No acute fracture or dislocation. No worrisome bone lesions. JOINTS: No effusions. SOFT TISSUES: No soft tissue swelling. No foreign body. OTHER: Plantar spurring is identified. IMPRESSION: NEGATIVE STUDY OF THE LEFT ANKLE. NO RADIOGRAPHIC EVIDENCE OF ACUTE INJURY. TECHNICAL DOCUMENTATION: JOB ID: [id number] [employer]- All Rights Reserved Reading location - IP/workstation name: [email or web address]
[2018-02-03 16:07] VITALS: BP 203/101
== END 2018-02-03 16:09 | disposition home or self-care (01) ==
LOC: ER 14:01
DX: S93.402A Sprain of unspecified ligament of left ankle, initial encounter (principal); X50.0XXA Overexertion from strenuous movement or load, initial encounter; M77.32 Calcaneal spur, left foot; M25.572 Pain in left ankle and joints of left foot; M79.672 Pain in left foot; I10 Essential (primary) hypertension; Z79.899 Other long term (current) drug therapy; Z88.6 Allergy status to analgesic agent; Z88.5 Allergy status to narcotic agent
CPT/HCPCS: 99283; 96372; 73610; 73630; L1902; J3490; J1885

== ENCOUNTER 2018-04-20 15:40 | Emergency (ER) | payer MEDICAID ==
[2018-04-20 15:49] VITALS: BP 196/81
[2018-04-20] MEDS ORDERED: ACETAMINOPHEN 325 MG TABLET PO ONE (15:50)
[2018-04-20] MEDS ORDERED: IBUPROFEN 600 MG TABLET PO ONE (16:50)
--- NOTE | 2018-04-20 17:04 | ER Document Report ---
HPI - HPI Time Seen by Provider: 04/20/18 16:50 Pain Level: 3 Notes: Patient is a 52-year-old female who presents with chief complaint of intermittent fevers, nausea, cough, congestion and headaches that started yesterday. Patient has not had a flu shot. Patient denies any chronic medical history. - CONSTITUTIONAL Constitutional: REPORTS: Fever, Chills - REPRODUCTIVE Reproductive: DENIES: : Past Medical History - General Information source: Patient - Social History Smoking Status: Never Smoker Family History: Reviewed & Not Pertinent, Malignancy Patient has suicidal ideation: No Patient has homicidal ideation: No - Past Medical History Cardiac Medical History: Reports: Hx Hypertension Denies: Hx Coronary Artery Disease Renal/ Medical History: Denies: Hx Peritoneal Dialysis Past Surgical History: Reports: Hx Section - Immunizations Hx Diphtheria, Pertussis, Tetanus Vaccination: No Vertical Provider Document - CONSTITUTIONAL Notes: PHYSICAL EXAMINATION: GENERAL: Well-appearing, well-nourished and in no acute distress. HEAD: Atraumatic, normocephalic. EYES: Pupils equal round extraocular movements intact, conjunctiva are normal. ENT: Nares patent with clear rhinorrhea, oropharynx clear, no tonsillar swelling or exudates noted. NECK: Normal range of motion LUNGS: No respiratory distress, lung sounds clear to auscultation. Occasional cough noted. Musculoskeletal: Normal range of motion NEUROLOGICAL: Normal speech, normal gait. PSYCH: Normal mood, normal affect. SKIN: Warm, Dry, normal turgor, no rashes or lesions noted. - INFECTION CONTROL TRAVEL OUTSIDE OF THE [place] IN LAST 30 DAYS: No Course - Re-evaluation Re-evalutation: Influenza testing is negative. Patient's symptoms are very similar to influenza. Discussed this with the patient. Discussed that most likely this is a viral etiology. [id number]-[id number] medications, push fluids, Tylenol and ibuprofen for pain or body aches. Patient verbalized understanding. Encouraged to follow-up with primary care provider if not improving over the next 3-5 days. - Vital Signs Vital signs: Temp Pulse Resp BP Pulse Ox 98.7 F 107 H 20 196/81 H 98 04/20/18 16:55 04/20/18 15:47 04/20/18 15:47 04/20/18 15:47 04/20/18 15:47 Discharge - Discharge Clinical Impression: Flu-like symptoms Condition: Stable Disposition: HOME, SELF-CARE Instructions: Influenza ([facility]) [id number] Additional Instructions: Your symptoms are very similar to the flu. You have opted to leave before if flu testing is back. Whether or not your flu test is positive my recommendation is to take Tylenol and ibuprofen for any body aches or fevers. Purchase an [id number] cold medicine that aligns with your symptoms. Drink plenty of fluids over the next several days and rest. It is advisable to stay away from the general public for 7 days from the time of symptom onset. Referrals: WILNER HADLEY MD [NO LOCAL MD] - Follow up as needed
[2018-04-20 17:10] LABS: A TYPE INFLUENZA AG NEGATIVE (NEGATIVE); B INFLUENZA AG NEGATIVE (NEGATIVE)
== END 2018-04-20 17:09 | disposition home or self-care (01) ==
LOC: ER 15:40
DX: R50.9 Fever, unspecified (principal); R11.0 Nausea; R05 Cough; R51 Headache; I10 Essential (primary) hypertension
CPT/HCPCS: 99283; 87804; J3490 ×2

== ENCOUNTER 2018-07-08 09:44 | Emergency (ER) | payer MEDICAID ==
[2018-07-08] MEDS ORDERED: LIDOCAINE 5% (700 MG) TRANSDERMAL ADH..PATCH TP ONE (10:12)
[2018-07-08] MEDS ORDERED: METHOCARBAMOL 500 MG TABLET PO ONE (10:12)
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
[2018-07-08 11:41] VITALS: BP 172/90
== END 2018-07-08 11:41 | disposition home or self-care (01) ==
LOC: ER 09:44
DX: R07.89 Other chest pain (principal); W22.09XA Striking against other stationary object, initial encounter; Y93.89 Activity, other specified; Y92.810 Car as the place of occurrence of the external cause; I10 Essential (primary) hypertension
CPT/HCPCS: 99283; 71046; J3490 ×2